=== PATIENT | male | born 1975 | race Caucasian/White ===

== ENCOUNTER 2018-08-14 00:26 | Emergency (ER) | payer OTHER, BC, SELFPAY ==
[2018-08-14 00:27] VITALS: BP 160/85; PULSE 91; RESP 16; TEMP 36.3; O2SAT 96; BMI 35.2
--- NOTE | 2018-08-14 00:34 | ED.RN ---
CALLED MONO FROM [facility] TO COME TEST THIS PT
--- NOTE | 2018-08-14 00:50 | RAD_ITS ---
HISTORY: DROPPED APPROX 100+LBS ON TOP OF RT FOOT AT WORKC/O PAIN ACROSS METATARSALS OF RT FOOT COMPARISON: None FINDINGS: # of images incl. paperwork: 3 XR Foot Min 3 Views: Right foot. SOFT TISSUES: Mild soft tissue swelling dorsal to the metatarsal shafts. No radiopaque foreign body. BONES: No acute fracture or subluxation. No sclerotic or destructive changes observed. Bidirectional calcaneal spurs. JOINTS: Mild degenerative changes. RAD/Foot min 3 Views IMPRESSION: Mild soft tissue swelling dorsal to the metatarsal shafts. No acute osseous abnormality. at 0124 Reported and signed by: Rafael Jnesen MD Electronically Signed: Rafael Jensen, at 1:23 EST Tel , Service support ,
--- NOTE | 2018-08-14 02:16 | ED.VISSUMM ---
- ER Visit Summary Date of Service: 08/14/18 Chief Complaint: Right foot injury History of Present Illness: The patient is a 43 M who presents with a right foot injury. While at work he had a roll of fiberglass paper fall onto his right foot from about 2-3 feet high. He estimates the weight at 100-150 pounds. He complains of moderate throbbing pain. No other injuries. He is able to partially weight-bear. Physical Examination: Afebrile vitals stable Heart regular rate and rhythm Lungs clear Active full range of motion of the right ankle and foot he does have midfoot tenderness without bony deformity, easily palpable dorsalis pedis pulse with brisk capillary refill normal sensation no ankle tenderness Test Results: Right foot x-ray shows mild soft tissue swelling no fracture Emergency Department Course and Treatment: Patient was given naproxen here for pain. He was advised on supportive care including rest ice and elevation. He will follow up with Worker's Comp. and was discharged home. Treatment Plan: [] Disposition: Discharge Impression: Right foot contusion This note was generated with [employer] dictation software. It may contain incorrect words, spelling, and punctuation that were not noted in review of the chart prior to signing ED Disposition - Plan for ED Patient: Referrals: Gatito Roa DO [Primary Care Provider] -
--- NOTE | 2018-08-14 02:17 | ED.DEP ---
ED Disposition - Plan for ED Patient: Instructions: ED Contusion Foot Referrals: Gatito Roa DO [Primary Care Provider] - [facility] [GROUP OF PHYSICIANS] -
--- NOTE | 2018-08-14 02:18 | DCINST.ED_ITS ---
ED Disposition - Plan for ED Patient: Instructions: ED Contusion Foot Referrals: Gatito Roa DO [Primary Care Provider] - [facility] [GROUP OF PHYSICIANS] -
[2018-08-14] MEDS: Naproxen 500 MG Tablet PO (02:34)
== END 2018-08-14 02:47 | disposition home or self-care (01) ==
PROVIDERS: Emergency Provider Emergency Medicine; Family Provider Family Medicine; PCP Family Medicine
DX: S90.31XA Contusion of right foot, initial encounter (principal); W22.8XXA Striking against or struck by other objects, initial encounter; Y93.9 Activity, unspecified; Y92.9 Unspecified place or not applicable; G40.909 Epilepsy, unspecified, not intractable, without status epilepticus; Z79.899 Other long term (current) drug therapy
CPT/HCPCS: 73630; 99283

== ENCOUNTER → 2020-06-29 11:03 | Outpatient (CLI) | payer BC, SELFPAY ==
--- NOTE | 2020-06-29 11:14 | MRI_ITS ---
STUDY: MRI BRAIN WITH AND WITHOUT CONTRAST REASON FOR EXAM: Male, 44 years old. seizures -- last seizure 4 years ago, on meds, new neurologists TECHNIQUE: Standardized multiplanar fat and water weighted pulse sequences were obtained. dotarem 20ml iv was administered for the contrast portion of the examination. COMPARISON: 05/04/2015 FINDINGS: Normal size of the ventricles and extra-axial spaces for the patient''s age. Normal white matter tracts of the supratentorial brain. Normal bilateral basal ganglia. Normal thalami. There is no extra-axial fluid accumulation. Normal flow voids within the major intracranial circulation suggesting patency by spin echo criteria. Normal venous enhancement. There is no enhancing intra-axial or extra-axial abnormality. Unremarkable sella turcica, pituitary gland, infundibular stalk, optic chiasm and hypothalamus. Normal tectal plate and pineal gland. Normal midbrain, lamar and medulla. Normal cerebellum. Normal basal cisterns. Normal bilateral temporal bones. Normal bilateral internal auditory canals. MRI/Brain W/WO Contrast IMPRESSION: Unremarkable unenhanced and enhanced MRI of the brain. Electronically Signed: Gurvinder Burns MD at 15:15 EST Tel , Service support ,
== END ==
PROVIDERS: Referring Provider Psychiatry & Neurology Neurology; Visit Provider Psychiatry & Neurology Neurology
DX: G40.019 Localization-related (focal) (partial) idiopathic epilepsy and epileptic syndromes with seizures of localized onset, intractable, without status epilepticus (principal)
CPT/HCPCS: 70553; A9575

== ENCOUNTER → 2020-11-12 16:40 | Outpatient (CLI) | payer BC, SELFPAY ==
[2020-11-12 18:07] LABS: Hematocrit 46.1 % (40-54); Hemoglobin 14.5 g/dL (13.0-16.5); Mean Corp Hgb Conc 31.5 g/dL (32-36); Mean Corpuscular Hgb 27.2 pg (27.0-32.0); Mean Corpuscular Volume 86.5 fL (80-94); Mean Platelet Vol. 10.8 fl (6.2-12.0); Platelet Count 281 K/mm3 (150-450); RBC Distribution Width CV 13.6 % (11.6-14.6); RBC Distribution Width SD 43.2 fl (35.1-43.9); Red Blood Count 5.33 M/mm3 (4.6-6.2); White Blood Count 8.3 K/mm3 (4.4-11.0)
[2020-11-12 18:30] LABS: ALB/GLOB Ratio 0.8 RATIO (0.9-2.4); AST(SGOT) 12 U/L (15-37); Alanine Aminotransfer ALT/SGPT 46 U/L (16-61); Albumin, Serum 3.3 g/dL (3.2-5.0); Alkaline Phosphatase 103 U/L (45-117); Anion Gap 5 (5-15); BUN 13 mg/dL (7-18); BUN/Creat Ratio 14.4 RATIO (10-20); Calcium,Total 8.6 mg/dL (8.5-10.1); Chloride 107 mmol/L (98-107); Cholesterol 196 mg/dL (200); EST Glomerular Filtration Rate 98 mL/min (>60); Est Glom Filt Rate - Afr Amer 118 mL/min (>60); Glucose 99 mg/dL (74-106); High Density Lipoprotein 41 mg/dL; Protein, Total 7.3 g/dL (6.4-8.2); Sodium Level 139 mmol/L (136-145); Triglycerides 124 mg/dL; Very Low Density Lipoprotein 25 mg/dL (5-40)
[2020-11-12 19:40] LABS: Hemoglobin A1c 5.8 % (3.8-5.6)
== END ==
PROVIDERS: PCP Student in an Organized Health Care Education/Training Program; Referring Provider Student in an Organized Health Care Education/Training Program; Visit Provider Student in an Organized Health Care Education/Training Program
DX: F32.9 Major depressive disorder, single episode, unspecified (principal); Z13.6 Encounter for screening for cardiovascular disorders
CPT/HCPCS: 36415; 80053; 80061; 83036; 84443; 85027

== ENCOUNTER → 2020-11-16 10:12 | Outpatient (CLI) | payer BC, SELFPAY ==
--- NOTE | 2020-11-16 10:20 | STEWCON_ITS ---
Reason For Study: DYSPNEA ON EXERTION Stress Results Protocol: Los Protocol WITH DEFINITY Maximum Predicted HR: 177 bpm Target HR: 150 bpm % Maximum Predicted HR: 83 % DurationHeart Rate Stage (mm:ss) (bpm) BP Comment BASELINE 82 122/744 CC DEFINITY FOR ENTIRE TEST STAGE 1 3:00 113 138/62NO CHEST PAIN OR SOB STAGE 2 3:00 123 144/62BREATHING A LITTLE MORE LABORED. NO CHEST PAIN STAGE 3 3:00 147 144/62NO CHEST PAIN, LEG FATIGUE AND SOB RECOVERY 100 132/74 Stress Duration: 9:00 mm:ss Maximum Stress HR: 147 bpm Baseline Echocardiogram Findings Stress Echo Wall motion Data Resting WM Intermediate WM Stress WM ECHO/Stress Test Echo W/Contrast Interpretation Summary Exercise stress echo. 45-year-old man with a family history of coronary disease. Stress protocol: Resting EKG demonstrates normal sinus rhythm with a rate of 81 bpm normal inter vals are noted resting blood pressure is 122/74 mmHg. The patient exercised according to the r egular Los protocol for a total duration of 9 minutes. The maximum heart rate attained was 148 bpm which was 83% of maximum predicted heart rate the maximum workload was 10.1 metabolic equivalent s. Patient completed stage III of the Los protocol. At rest there were no ST or T wave changes not ed to suggest ischemia and at peak exercise upsloping ST changes were noted with did not meet the criteria for ischemia the test was terminated due to leg fatigue. The peak blood pressure wa s 144/62 mmHg which was a normal blood pressure response to exercise. Stress echocardiogram. Resting and stress echocardiographic images were obtained with Definity enhance ment. The resting ejection fraction was 55% with a peak ejection fraction of 65% with no wall mot ion abnormalities present. The above is suggestive of a normal stress echocardiogram at high work load. Conclusion: Normal exercise stress echo with no evidence of ischemia at a high workload. Normal resting and stress echocardiographic images. Ordering Physician: Bruno Da Silva Referring Physician: Bruno Da Silva Performed By: Celine Cervantes, GABINO, RVT
== END ==
PROVIDERS: PCP Student in an Organized Health Care Education/Training Program; Referring Provider Student in an Organized Health Care Education/Training Program; Visit Provider Student in an Organized Health Care Education/Training Program
DX: R06.00 Dyspnea, unspecified (principal); E66.9 Obesity, unspecified; Z68.34 Body mass index [BMI] 34.0-34.9, adult
CPT/HCPCS: 93017; 93350; Q9957; A4216; C8928

== ENCOUNTER 2021-09-17 18:51 | Emergency (ER) | payer BC, SELFPAY ==
[2021-09-17 18:52] VITALS: BP 166/96; PULSE 91; PULSE 94; RESP 18; TEMP 36.3; O2SAT 93; O2SAT 94; BMI 34.9
--- NOTE | 2021-09-17 21:01 | ED.RN ---
PT. WAS ABLE TO STAND AND MOVE TO BED WITH NO DIFFICULTIES.
--- NOTE | 2021-09-17 21:06 | EKG12_ITS ---
Test Reason : GEN ILLNESS Blood Pressure : / mmHG Vent. Rate : 086 BPM Atrial Rate : 086 BPM P-R Int : 146 ms QRS Dur : 084 ms QT Int : 374 ms P-R-T Axes : 050 078 023 degrees QTc Int : 447 ms Normal sinus rhythm Normal ECG Confirmed by JAD CRUZ, SKYLER ([id number]), school photograph editor NATALIA SHETH ([id number]) on 09/20/2021 10:59:01 AM Referred By: THEODORA Confirmed By:SKYLER STREET MD
--- NOTE | 2021-09-17 21:09 | EX.ED.DYSGE1 ---
HPI <JT Coats - Last Filed: 09/17/21 22:13> History of Present Illness Chief Complaint: General Illness Narrative Narrative: 46-year-old male with PMH of seizures, depression presents with right-sided chest pain. He states that 6:00 he was sitting when he developed sudden onset sharp pain along his right shoulder blade extending down the right side of his lateral chest to the level of his hips. Pain is worse with movement. He states when he was sitting completely still in the wheelchair in triage he did not have pain, but with movement it is 10/10. No chest pain- it is all on the side. He denies shortness of breath or cough. Denies abdominal or flank pain. He reports normal daily bowel movements and no urinary symptoms. No fever or chills. No nausea or vomiting. PFSH <JT Coats - Last Filed: 09/17/21 22:13> PFSH Home Medications lamotrigine 200 mg PO BID 08/14/18 [History Last Taken Unknown] levetiracetam 1,500 mg PO BID 08/14/18 [History Last Taken Unknown] naproxen [Naprosyn] 500 mg PO BID PRN #20 tab 09/17/21 [Rx Last Taken Unknown] venlafaxine [Effexor XR] 150 mg PO DAILY 09/17/21 [History Last Taken Unknown] Allergy/AdvReac Type Severity Reaction Status Date / Time No Known Allergies Allergy Verified 09/17/21 21:32 Social History Smoking Status: Never smoker ROS <JT Coats - Last Filed: 09/17/21 22:13> ROS ED ROS Narrative Constitutional: Negative for fever, chills, malaise. Eyes: Negative for visual change. ENT: Negative for sore throat, ear pain, rhinorrhea. CVS: Negative for palpitations, chest pain, syncope. Respiratory: Negative for shortness of breath, cough, orthopnea. GI: Negative for abdominal pain, nausea, vomiting, diarrhea, constipation, melena, hematochezia. : Negative for dysuria, hematuria or frequency. Neuro: Negative for headache, motor/sensory dysfunction. Skin: Negative for rash, abscess, or wound. Musc: Negative for joint pain, swelling, trauma. Heme: Negative for easy bruising, bleeding, lymphadenopathy. EXAM <JT Coats - Last Filed: 09/17/21 22:13> Physical Exam Narrative Exam Narrative: CONST: Patient sitting in no acute distress. EYES: Normal inspection. ENT: Normal inspection, moist mucous membranes. NECK: Normal inspection. RESP: No respiratory distress, CTAB. Chest wall nontender. CVS: Regular rate and rhythm, no murmur, no gallop. ABD: Soft and nontender, no guarding or rebound, nondistended, no hepatosplenomegaly. Back: Normal inspection, no CVA tenderness. No midline spinal tenderness, no step-off or crepitus. SKIN: Color normal, no rash, warm, dry, intact. EXTREMITIES: Normal appearance, no pedal edema. 5/5 upper and lower extremity strength, normal sensation to light touch, 2+ radial and posterior tibial pulses. NEURO: Oriented x4. PSYCH: Normal affect. Const Vital Signs: 09/17/21 18:52 09/17/21 20:59 09/17/21 22:04 Temperature 97.4 F L Temperature Source Temporal Pulse Rate 91 83 Respiratory Rate 18 21 H Respiratory Effort Normal Non-Labored Respiratory Pattern Normal Blood Pressure 166/96 H 139/84 H Blood Pressure Mean 119 102 Pulse Ox 94 94 Oxygen Delivery Method Room Air Room Air <Dr. Cruz Kahn DO - Last Filed: 09/17/21 23:15> Physical Exam Const Vital Signs: 09/17/21 18:52 09/17/21 20:59 09/17/21 22:04 Temperature 97.4 F L Temperature Source Temporal Pulse Rate 91 83 Respiratory Rate 18 21 H Respiratory Effort Normal Non-Labored Respiratory Pattern Normal Blood Pressure 166/96 H 139/84 H Blood Pressure Mean 119 102 Pulse Ox 94 94 Oxygen Delivery Method Room Air Room Air [facility] <JT Coats - Last Filed: 09/17/21 22:13> [facility] Narrative Medical decision making narrative: Patient presents with pain along the right lateral side of his chest that started at rest. He has no chest or back pain. No abdominal pain. No pain in his jaw or extremities. There was no trauma. He appears well nontoxic vital signs are within normal limits. The nurse states he was able to get up from the wheelchair and get into the bed comfortably. Here he is moist mucous membranes. Normal oropharynx. Heart regular rate and rhythm. Lungs clear to auscultation. Abdomen soft nontender nondistended no peritoneal signs. He has no reproducible pain of the chest wall, affected side, back, or flank. He has full range of motion of upper and lower extremities and is neurovascularly intact. The pain does not really fit with ACS/PE and he is PERC negative. Basic labs and troponin were obtained and are unremarkable. EKG is nonischemic. Chest x-ray is pending. Patient was treated symptomatically with Toradol and will be evaluated by ED attending who will determine final disposition. Lab Data Labs: Laboratory Results - last 24 hr 09/17/21 09/17/21 09/17/21 21:20 21:20 22:10 WBC 12.4 H RBC 5.43 Hgb 15.2 Hct 46.9 MCV 86.4 MCH 28.0 MCHC 32.4 RDW Std Deviation 43.8 RDW Coeff of Alhaji 13.9 Plt Count 310 MPV 10.3 Immature Gran % (Auto) 0.800 Neut % (Auto) 70.7 H Lymph % (Auto) 17.2 L Spalding % (Auto) 9.0 Eos % (Auto) 1.9 Baso % (Auto) 0.4 Absolute Neuts (auto) 8.7 H Absolute Lymphs (auto) 2.12 Nucleated RBC % 0 Sodium 139 Potassium 4.2 Chloride 108 H Carbon Dioxide 27.0 Anion Gap 4 L BUN 26 H Creatinine 1.05 Estim Creat Clear Calc 98.54 Est GFR (MDRD) Af Amer 99 Est GFR (MDRD) Non-Af 82 BUN/Creatinine Ratio 24.8 H Glucose 115 H Calcium 8.8 Troponin I High Sens < 3 L Urine Color Yellow Urine Clarity Clear Urine pH 5.0 Ur Specific [place] 1.025 Urine Protein 30 H Urine Glucose (UA) Normal Urine Ketones 5 H Urine Occult Blood 150 H Urine Nitrite Negative Urine Bilirubin Negative Urine Urobilinogen Normal Ur Leukocyte Esterase Negative Urine RBC 0 SEEN Urine WBC 0-5 SEEN Ur Squamous Epith Cells 0 SEEN Urine Bacteria 0 SEEN Hyaline Casts 0-5 SEEN Urine Mucus 4+ Radiography Diagnostic Testing: Clinical Impression(s) from Imaging Studies Chest X-Ray 09/17/21 22:09 IMPRESSION: 1. No radiographic evidence of acute cardiopulmonary disease. Electronically Signed: Bruno Payne DO at 22:58 EST , EKG Initial EKG: Attestation: I personally reviewed and interpreted this EKG as follows: Interpretation: Sinus Rhythm and No Acute Injury Pattern Comments: Normal sinus rhythm, normal intervals, no acute ischemic changes <Dr. Cruz Kahn, DO - Last Filed: 09/17/21 23:15> [facility] MDM Narrative Medical decision making narrative: 46-year-old male with no history of cardiac issues presenting with right-sided shoulder/rib pain. He initially reported to the PA that extended all the way to his right hip. He reports to me that he was sitting still when this occurred. There is no exertional component to it. He does not have shortness of breath, cough abdominal pain. He denies any urinary symptoms. He denies constipation or diarrhea. He is not had any injury that he knows of. When I independently examined him after the physician store administrative assistant the patient does not make any eye contact with me while I am questioning him and examining him. He does not have any reproducible pain that I can tell. He is not tender his shoulder, ribs, flank. His abdominal exam is normal. He does report to me that Toradol did help. Blood work today shows a slight leukocytosis at 12.4. Hemoglobin/hematocrit are stable. Renal function electrolytes are normal. Urinalysis does show some occult blood but he has no flank pain or CVA tenderness. High-sensitivity troponin is negative. EKG is sinus rhythm without sign of ischemic change or dysrhythmia on my interpretation. Chest x-ray on my interpretation is no acute cardiopulmonary process and the radiologist does agree. This does not sound like ACS I do not believe he needs a repeat troponin. After returning to reevaluate the patient prior to discharge and had a discussion that his work-up was otherwise normal. He is still not making any eye contact with me. He states I guess I have paid for no reason. I counseled him that we did not find any emergent cause of his pain but if he has any new or worsening symptoms of concern to return to the emergency room for repeat evaluation. He does acknowledge understanding of this. He will be discharged home in stable condition. Impression: 1. Right shoulder pain 2. Chest pain noncardiac Lab Data Attestation: I reviewed the patient's lab results. Labs: Laboratory Results - last 24 hr 09/17/21 09/17/21 09/17/21 21:20 21:20 22:10 WBC 12.4 H RBC 5.43 Hgb 15.2 Hct 46.9 MCV 86.4 MCH 28.0 MCHC 32.4 RDW Std Deviation 43.8 RDW Coeff of Alhaji 13.9 Plt Count 310 MPV 10.3 Immature Gran % (Auto) 0.800 Neut % (Auto) 70.7 H Lymph % (Auto) 17.2 L Spalding % (Auto) 9.0 Eos % (Auto) 1.9 Baso % (Auto) 0.4 Absolute Neuts (auto) 8.7 H Absolute Lymphs (auto) 2.12 Nucleated RBC % 0 Sodium 139 Potassium 4.2 Chloride 108 H Carbon Dioxide 27.0 Anion Gap 4 L BUN 26 H Creatinine 1.05 Estim Creat Clear Calc 98.54 Est GFR (MDRD) Af Amer 99 Est GFR (MDRD) Non-Af 82 BUN/Creatinine Ratio 24.8 H Glucose 115 H Calcium 8.8 Troponin I High Sens < 3 L Urine Color Yellow Urine Clarity Clear Urine pH 5.0 Ur Specific [place] 1.025 Urine Protein 30 H Urine Glucose (UA) Normal Urine Ketones 5 H Urine Occult Blood 150 H Urine Nitrite Negative Urine Bilirubin Negative Urine Urobilinogen Normal Ur Leukocyte Esterase Negative Urine RBC 0 SEEN Urine WBC 0-5 SEEN Ur Squamous Epith Cells 0 SEEN Urine Bacteria 0 SEEN Hyaline Casts 0-5 SEEN Urine Mucus 4+ Radiography Diagnostic Testing: Clinical Impression(s) from Imaging Studies Chest X-Ray 09/17/21 22:09 IMPRESSION: 1. No radiographic evidence of acute cardiopulmonary disease. Electronically Signed: Bruno Payne DO at 22:58 EST , Discharge Plan Triage Chief Complaint: General Illness ED Provider: Cruz Kahn Dx/Rx/DC Orders Instructions: ED Chest Pain, Uncertain Cause Prescriptions: New naproxen [Naprosyn] 500 mg tablet 500 mg PO BID PRN (Reason: pain) Qty: 20 RF: 0 No Action levetiracetam 750 MG tablet 1,500 mg PO BID RF: 0 lamotrigine 100 tablet 200 mg PO BID RF: 0 venlafaxine [Effexor XR] 150 mg capsule,extended release 24hr 150 mg PO DAILY RF: 0 Primary Care Provider: Bruno Da Silva Referrals: Bruno Da Silva DO [Primary Care Provider] - Disposition Disposition: Home, Self Care Discharge Date/Time: 09/17/21 23:09
[2021-09-17] MEDS: Ketorolac 15 MG/ML Vial IV (21:26)
[2021-09-17 21:28] LABS: Absolute Lymphocyte Count 2.12 X10^3/uL (0.83-4.51); Absolute Neutrophil Count 8.7 X10^3/uL (2.0-7.7); Basophil# 0.05 X10^3/uL; Basophil% 0.4 % (0-1); Eosinophil# 0.23 X10^3/uL; Eosinophils% 1.9 % (0-5); Hematocrit 46.9 % (40-54); Hemoglobin 15.2 g/dL (13.0-16.5); Lymphocyte # 2.12 X10^3/ul (0.83-4.51); Lymphocyte % 17.2 % (19-41); Mean Corp Hgb Conc 32.4 g/dL (32-36); Mean Corpuscular Volume 86.4 fL (80-94); Mean Platelet Vol. 10.3 fl (6.2-12.0); Monocyte# 1.11 X10^3/uL; NRBC Flagged by Analyzer 0 % (0-5); Neutrophil # 8.74 X10^3/uL (2.7-7.7); Neutrophil % 70.7 % (47-70); Platelet Count 310 K/mm3 (150-450); RBC Distribution Width CV 13.9 % (11.6-14.6); RBC Distribution Width SD 43.8 fl (35.1-43.9); Red Blood Count 5.43 M/mm3 (4.6-6.2); White Blood Count 12.4 K/mm3 (4.4-11.0)
[2021-09-17 21:46] LABS: Anion Gap 4 (5-15); BUN 26 mg/dL (7-18); BUN/Creat Ratio 24.8 RATIO (10-20); Calcium,Total 8.8 mg/dL (8.5-10.1); Chloride 108 mmol/L (98-107); Creatinine, Serum 1.05 mg/dL (0.70-1.30); EST Glomerular Filtration Rate 82 mL/min (>60); Est Glom Filt Rate - Afr Amer 99 mL/min (>60); Estimated Creatinine Clearance 98.54 ml/min; Glucose 115 mg/dL (74-106); Potassium 4.2 mmol/L (3.5-5.1); Sodium Level 139 mmol/L (136-145); Troponin-I HS < 3 pg/mL (3.0-78.0)
[2021-09-17 22:04] VITALS: BP 139/84; PULSE 83; RESP 21; O2SAT 94
--- NOTE | 2021-09-17 22:09 | RAD_ITS ---
INDICATION: chest pain EXAMINATION/TECHNIQUE: X-RAY - XR Chest 2 Views COMPARISON: None. FINDINGS: LINES/DEVICES: None. LUNGS: Mild asymmetric elevation right hemidiaphragm. Otherwise normal lung volumes. No airspace opacity or abnormal interstitial pattern. No nodule or mass. No pleural effusion or pneumothorax. MEDIASTINUM AND CARDIOVASCULAR STRUCTURES: Normal size and contour of the cardiomediastinal silhouette. No evidence of pulmonary vascular congestion. BONES AND SOFT TISSUES: Bridging anterior osteophytes thoracic spine. No fracture or focal osseous lesion. RAD/Chest PA and Lateral IMPRESSION: 1. No radiographic evidence of acute cardiopulmonary disease. Electronically Signed: Bruno Payne DO at 22:58 EST ,
[2021-09-17 22:28] LABS: Bacteria 0 SEEN /hpf (None Seen); Red Blood Cells-Urine 0 SEEN /hpf (0-5); Squamous Epithelial Cells - UA 0 SEEN /hpf (0-5)
[2021-09-17 22:32] LABS: Color, Urine Yellow (Yellow); Glucose, Dipstick Normal (Normal); Ketone-Dipstick 5 mg/dl (Negative); Leukocyte Esterase-Dipstick Negative /ul (Negative); Nitrite-Dipstick Negative (Negative); Occult Blood-Urine 150 /ul (Negative); Protein-Dipstick 30 mg/dl (Negative); Specific Gravity, Urine 1.025 (1.002-1.030); Urine Bilirubin Dipstick Negative (Negative); Urine Clarity Clear (Clear); Urine Urobilinogen Normal (Normal)
[2021-09-17 22:48] LABS: Hyaline Cast 0-5 SEEN /lpf (0-5); Mucous, Urine 4+ /hpf (<or=2+); White Blood Cells 0-5 SEEN /hpf (0-5)
== END 2021-09-17 23:09 | disposition home or self-care (01) ==
PROVIDERS: Physician Assistant; Emergency Provider Student in an Organized Health Care Education/Training Program; PCP Student in an Organized Health Care Education/Training Program; Visit Provider Student in an Organized Health Care Education/Training Program
DX: R07.89 Other chest pain (principal); G40.909 Epilepsy, unspecified, not intractable, without status epilepticus; M25.511 Pain in right shoulder; F32.A Depression, unspecified; Z79.899 Other long term (current) drug therapy
CPT/HCPCS: 71046; 80048; 81001; 84484; 85025; 93005; 96374; 99283; A4216

== ENCOUNTER → 2022-04-29 | Outpatient (CLI) | payer BC, SELFPAY ==
[2022-04-29 07:43] LABS: Hematocrit 44.1 % (40-54); Hemoglobin 13.9 g/dL (13.0-16.5); Mean Corp Hgb Conc 31.5 g/dL (32-36); Mean Corpuscular Hgb 26.3 pg (27.0-32.0); Mean Corpuscular Volume 83.5 fL (80-94); Mean Platelet Vol. 10.1 fl (6.2-12.0); Platelet Count 289 K/mm3 (150-450); RBC Distribution Width CV 13.9 % (11.6-14.6); RBC Distribution Width SD 42.4 fl (35.1-43.9); Red Blood Count 5.28 M/mm3 (4.6-6.2); White Blood Count 8.9 K/mm3 (4.4-11.0)
[2022-04-29 08:05] LABS: Hemoglobin A1c 6.1 % (3.8-5.6)
[2022-04-29 08:12] LABS: ALB/GLOB Ratio 0.9 RATIO (0.9-2.4); AST(SGOT) 15 U/L (15-37); Alanine Aminotransfer ALT/SGPT 37 U/L (16-61); Albumin, Serum 3.4 g/dL (3.2-5.0); Alkaline Phosphatase 90 U/L (45-117); Anion Gap 4 (5-15); BUN 18 mg/dL (7-18); BUN/Creat Ratio 19.5 RATIO (10-20); Calcium,Total 8.6 mg/dL (8.5-10.1); Chloride 107 mmol/L (98-107); Cholesterol 174 mg/dL (200); Creatinine, Serum 0.92 mg/dL (0.70-1.30); EST Glomerular Filtration Rate 94 mL/min (>60); Est Glom Filt Rate - Afr Amer 114 mL/min (>60); Globulin 3.6 g/dL (2.2-4.2); Glucose 111 mg/dL (74-106); High Density Lipoprotein 42 mg/dL; Sodium Level 140 mmol/L (136-145); Triglycerides 72 mg/dL; Very Low Density Lipoprotein 14 mg/dL (5-40)
[2022-04-29 08:18] LABS: Rubella IgG Reactive (Nonreactive)
[2022-05-03 17:49] LABS: Mumps Antibody, IgM < 0.80 AU (0.00-0.79)
== END | disposition home or self-care (01) ==
LOC: LAB 07:25
PROVIDERS: PCP Student in an Organized Health Care Education/Training Program; Referring Provider Student in an Organized Health Care Education/Training Program; Visit Provider Student in an Organized Health Care Education/Training Program
DX: Z01.84 Encounter for antibody response examination (principal); R73.03 Prediabetes; Z13.6 Encounter for screening for cardiovascular disorders
CPT/HCPCS: 36415; 80053; 80061; 83036; 85027; 86735; 86762; 86765

== ENCOUNTER → 2022-09-23 | Outpatient (CLI) | payer BC, SELFPAY ==
[2022-09-23 08:09] LABS: Hematocrit 43.7 % (40-54); Hemoglobin 13.8 g/dL (13.0-16.5); Mean Corp Hgb Conc 31.6 g/dL (32-36); Mean Corpuscular Hgb 26.6 pg (27.0-32.0); Mean Corpuscular Volume 84.4 fL (80-94); Mean Platelet Vol. 10.3 fl (6.2-12.0); Platelet Count 261 K/mm3 (150-450); RBC Distribution Width CV 14.6 % (11.6-14.6); RBC Distribution Width SD 44.6 fl (35.1-43.9); Red Blood Count 5.18 M/mm3 (4.6-6.2); White Blood Count 8.9 K/mm3 (4.4-11.0)
[2022-09-23 08:39] LABS: AST(SGOT) 19 U/L (15-37); Alanine Aminotransfer ALT/SGPT 43 U/L (16-61); Albumin, Serum 3.6 g/dL (3.2-5.0); Alkaline Phosphatase 89 U/L (45-117); Anion Gap 6 (5-15); BUN 23 mg/dL (7-18); BUN/Creat Ratio 25.4 RATIO (10-20); Calcium,Total 8.9 mg/dL (8.5-10.1); Chloride 108 mmol/L (98-107); Cholesterol 193 mg/dL (200); EST Glomerular Filtration Rate 96 mL/min (>60); Est Glom Filt Rate - Afr Amer 117 mL/min (>60); Globulin 3.7 g/dL (2.2-4.2); Glucose 115 mg/dL (74-106); High Density Lipoprotein 44 mg/dL; Potassium 4.1 mmol/L (3.5-5.1); Protein, Total 7.3 g/dL (6.4-8.2); Sodium Level 141 mmol/L (136-145); Thyroid Stim Hormone (TSH) 2.71 uIU/mL (0.358-3.74); Triglycerides 80 mg/dL; Very Low Density Lipoprotein 16 mg/dL (5-40)
[2022-09-23 08:42] LABS: Hemoglobin A1c 5.7 % (3.8-5.6)
[2022-09-23 09:02] LABS: Hepatitis C Antibody Non-Reactive (Nonreactive)
== END | disposition home or self-care (01) ==
PROVIDERS: PCP Student in an Organized Health Care Education/Training Program; Visit Provider Student in an Organized Health Care Education/Training Program
DX: Z11.59 Encounter for screening for other viral diseases (principal); R73.03 Prediabetes
CPT/HCPCS: 36415; 80053; 80061; 83036; 84443; 85027; 86803

== ENCOUNTER → 2023-08-29 | Outpatient (CLI) | payer BC, SELFPAY ==
--- OUTSIDE RECORDS SUMMARY | 2023-08-29 07:33 | XMS RPT_ITS | CCD ---
Author Name Unknown Address [address] [place] [address] Organization [facility] Care Team Providers Care Phlebotomy Director Name Role Phone RICKYJUAN LAZO Primary Care Unavailable MAURIZIO MORRIS Attending Unavailable Problems Problem Classification Problem Date Documented Da te Episodic/Chronic Open wounds of head; neck; and trunk (1 source) Laceration without foreign body of other part of head, initial encounter; Translations: [Laceration of forehead, initial encounter] Onset: 07-24-2022 Episodic Other injuries and conditions due to external causes (1 source) Unspecified injury of head, initial encounter; Translations: [Closed head injury, initial encounter] Onset: 07-24-2022 Episodic Syncope (1 source) Syncope and collapse; Translations: [Syncope and collapse] Onset: 07-24-2022 Episodic Results Test Name Value Interpretation Reference Range Facil ity Encounters Encounter Date Encounter Type Care Provider Facility Start: 07-24-2022 End: 07-24-2022 Emergency department patient visit JUAN CASTRO Facility:[id number] Payers Date Payer Category Payer Unknown [id number] Summary Purpose Family History No Family History Records FoundNo Family History Records Found Advance Directives No Advanced Directives Records FoundNo Advanced Directives Records Found Additional Source Comments (unrecognized sect ion and content) No Status Records FoundNo Status Records Found INFORMATION SOURCE (unrecogn ized section and content) DATE CREATED AUTHOR AUTHOR'S ASHLEY MCCAIN 07/25/2022 [facility] FOR RECORDS PERTAINING TO PATIENTS WHO ARE OR HAVE BEEN ENROLLED IN A CHEMICAL DEPENDENCY/SUBSTANCEABUSE PROGRAM, SOME INFORMATION MAY BE OMITTED. This clinical summary was aggregated from multiple sources. Caution should be exercised in using it in the provision of clinical care. This summary normalizes information from multiple sources, and as a consequence, information in this document may materially change the coding, format and clinical context of patient data. In addition, data may be omitted in some cases. CLINICAL DECISIONS SHOULD BE BASED ON THE PRIMARY CLINICAL RECORDS. [facility] [email or web address] [facility]. provides no warranty or guarantee of the accuracy or completeness of information in this document.
[2023-08-29 08:12] LABS: Hematocrit 45.8 % (40-54); Hemoglobin 14.9 g/dL (13.0-16.5); Mean Corp Hgb Conc 32.5 g/dL (32-36); Mean Corpuscular Hgb 27.5 pg (27.0-32.0); Mean Corpuscular Volume 84.7 fL (80-94); Mean Platelet Vol. 10.3 fl (6.2-12.0); Platelet Count 295 K/mm3 (150-450); RBC Distribution Width CV 14.6 % (11.6-14.6); Red Blood Count 5.41 M/mm3 (4.6-6.2)
[2023-08-29 08:54] LABS: ALB/GLOB Ratio 0.9 RATIO (0.9-2.4); AST(SGOT) 21 U/L (15-37); Alanine Aminotransfer ALT/SGPT 62 U/L (16-61); Albumin, Serum 3.5 g/dL (3.2-5.0); Alkaline Phosphatase 80 U/L (45-117); Anion Gap 5 (5-15); BUN 22 mg/dL (7-18); BUN/Creat Ratio 20.6 RATIO (10-20); Calcium,Total 8.5 mg/dL (8.5-10.1); Chloride 107 mmol/L (98-107); Cholesterol 210 mg/dL (200); Creatinine, Serum 1.07 mg/dL (0.70-1.30); EST Glomerular Filtration Rate 79 mL/min (>60); Est Glom Filt Rate - Afr Amer 96 mL/min (>60); Globulin 3.9 g/dL (2.2-4.2); Glucose 102 mg/dL (74-106); High Density Lipoprotein 39 mg/dL; Protein, Total 7.4 g/dL (6.4-8.2); Sodium Level 138 mmol/L (136-145); Triglycerides 85 mg/dL; Very Low Density Lipoprotein 17 mg/dL (5-40)
== END | disposition home or self-care (01) ==
LOC: LAB.FUTURE 07:23 → LAB 07:26
PROVIDERS: PCP Student in an Organized Health Care Education/Training Program; Referring Provider Psychiatry & Neurology Neurology; Visit Provider Psychiatry & Neurology Neurology
DX: G40.009 Localization-related (focal) (partial) idiopathic epilepsy and epileptic syndromes with seizures of localized onset, not intractable, without status epilepticus (principal); R73.03 Prediabetes
CPT/HCPCS: 36415; 80053; 80061; 85027

== ENCOUNTER → 2024-02-27 | Outpatient (CLI) | payer BC, SELFPAY ==
[2024-02-27 08:13] LABS: Hematocrit 45.3 % (40-54); Hemoglobin 14.3 g/dL (13.0-16.5); Mean Corp Hgb Conc 31.6 g/dL (32-36); Mean Corpuscular Hgb 26.9 pg (27.0-32.0); Mean Corpuscular Volume 85.3 fL (80-94); Mean Platelet Vol. 10.4 fl (6.2-12.0); Platelet Count 287 K/mm3 (150-450); RBC Distribution Width CV 13.8 % (11.6-14.6); Red Blood Count 5.31 M/mm3 (4.6-6.2); White Blood Count 8.3 K/mm3 (4.4-11.0)
[2024-02-27 08:54] LABS: ALB/GLOB Ratio 0.9 RATIO (0.9-2.4); AST(SGOT) 23 U/L (15-37); Alanine Aminotransfer ALT/SGPT 50 U/L (16-61); Albumin, Serum 3.4 g/dL (3.2-5.0); Alkaline Phosphatase 88 U/L (45-117); Anion Gap 5 (5-15); BUN 26 mg/dL (7-18); BUN/Creat Ratio 26.1 RATIO (10-20); Calcium,Total 8.8 mg/dL (8.5-10.1); Chloride 107 mmol/L (98-107); Cholesterol 198 mg/dL (200); EST Glomerular Filtration Rate 86 mL/min (>60); Est Glom Filt Rate - Afr Amer 104 mL/min (>60); Globulin 3.8 g/dL (2.2-4.2); Glucose 102 mg/dL (74-106); High Density Lipoprotein 41 mg/dL; PSA,Total - Annual Screen 1.23 ng/mL (0.00-4.00); Potassium 4.3 mmol/L (3.5-5.1); Protein, Total 7.2 g/dL (6.4-8.2); Sodium Level 139 mmol/L (136-145); Triglycerides 89 mg/dL; Very Low Density Lipoprotein 18 mg/dL (5-40)
[2024-02-27 14:09] LABS: Hemoglobin A1c 5.9 % (3.8-5.6)
== END | disposition home or self-care (01) ==
LOC: LAB 07:28
PROVIDERS: PCP Student in an Organized Health Care Education/Training Program; Referring Provider Student in an Organized Health Care Education/Training Program; Visit Provider Student in an Organized Health Care Education/Training Program
DX: Z13.6 Encounter for screening for cardiovascular disorders (principal); Z12.5 Encounter for screening for malignant neoplasm of prostate
CPT/HCPCS: 36415; 80053; 80061; 83036; 84153; 85027; G0103

== ENCOUNTER 2024-05-22 11:41 | Emergency (ER) | payer BC, SELFPAY ==
[2024-05-22 11:41] VITALS: BP 171/106; PULSE 80; RESP 16; TEMP 36.6; O2SAT 97; BMI 35.1
--- NOTE | 2024-05-22 12:09 | EX.ED.UPPERE ---
HPI History of Present Illness Chief Complaint: Upper Extremity Injury Informant: patient Narrative Narrative: Sent from urgent care was unable to remove his ring from left ring finger. Last took off the ring a month ago over last 3 weeks increasing swelling. He states it is cutting to his skin. No fever or drainage. PFSH PFSH Home Medications ?Medication ?Instructions ?Recorded ?Last Taken ?Type lamotrigine 100 mg tablet 200 mg PO BID 08/14/18 Unknown History levetiracetam 750 mg tablet 1,500 mg PO BID 08/14/18 Unknown History naproxen 500 mg tablet (Naprosyn) 500 mg PO BID PRN pain #20 tabs 09/17/21 Unknown Rx venlafaxine 150 mg 150 mg PO DAILY 09/17/21 Unknown History capsule,extended release 24 hr (Effexor XR) Allergy/AdvReac Type Severity Reaction Status Date / Time No Known Allergies Allergy Verified 05/22/24 11:41 Social History Smoking Status: Never smoker ROS ROS ED Constitutional Constitutional ED: Denies chills or fever(s) Cardiovascular Cardiovascular: Denies chest pain Respiratory/Chest Respiratory/Chest: Denies cough Gastrointestinal Gastrointestinal: Denies abdominal pain Integumentary Reports Abrasions and other Details: Ring stuck Neurologic Neurologic: Denies paresthesias EXAM Physical Exam Const Vital Signs: 05/22/24 11:41 Temperature 98 F Temperature Source Temporal Pulse Rate 80 Respiratory Rate 16 Blood Pressure 171/106 H Blood Pressure Mean 127 Pulse Ox 97 Oxygen Delivery Method Room Air Positive well nourished and well developed General Appearance ED: well developed and NAD HEENT Reports moist mucous membranes normocephalic and atraumatic Chest Wall Chest: Negative for tenderness Resp normal respiratory effort and normal air movement Effort and Inspection: symmetric chest movement; Negative for respiratory distress Cardio regular rate, regular rhythm and no murmurs Peripheral Pulses: pulses 2+ throughout GI normal to inspection, nondistended, normoactive bowel sounds and non-tender Palpation: Negative for guarding or rebound tenderness present Back/Spine no CVA tenderness and no thoracic nor lumbar tenderness Extremity normal to inspection Extremity Narrative: Left hand: Swelling the digit no redness. Ring at the proximal phalanx is abrasions around the wound site. No drainage. General Extremety ED: Yes edema; Negative for tenderness General Extremity: edema Neuro oriented x3 and no sensory deficits noted Sensorium / Orientation: awake and alert Skin Skin Narrative: See above MDM MDM MDM Narrative Medical decision making narrative: Interventions / MDM: Differential diagnosis: Ring stuck, finger abrasion Diagnosis considered but do not suspect: N/A My EKG interpretation: N/A Imaging independently reviewed and interpreted by myself: N/A External documents reviewed: N/A Test considered but not ordered:N/A ED course: Patient was stuck ring. Nursing remove ring with a ring lap cutter truer operator the department. Reevaluation slight abrasion to skin no drainage no bleeding. Wound care discussed with outpatient follow-up. Re-evaluation: stable Disposition discussed with patient/family/significant other: Patient Case discussed with consulting clinician: N/A This note was generated with [employer] dictation software. It may contain incorrect words, spelling, and punctuation that were not noted in checking the note before signing. Discharge Plan Triage Chief Complaint: Upper Extremity Injury ED Provider: Cade Cisenros Dx/Rx/DC Orders Clinical Impression: Encounter for medical assessment, Finger abrasion Instructions: ED Ring Removal (Adult) Prescriptions: No Action levetiracetam 750 MG tablet 1,500 mg PO BID lamotrigine 100 tablet 200 mg PO BID venlafaxine [Effexor XR] 150 mg capsule,extended release 24hr 150 mg PO DAILY Patient Comments: TAKE 1 CAPSULE BY MOUTH EVERY DAY naproxen [Naprosyn] 500 mg tablet 500 mg PO BID PRN (Reason: pain) Qty: 20 0RF Primary Care Provider: Bruno Da Silva Referrals: Bruno Da Silva DO [Primary Care Provider] - 1-2 Weeks Activity Restrictions/Additional Instructions: Your ring was removed with ring lap cutter truer operator the ED. Print Language: Upper Sorbian Disposition Disposition: Home, Self Care
== END 2024-05-22 12:13 | disposition home or self-care (01) ==
LOC: ED 12:01
PROVIDERS: Emergency Provider Emergency Medicine; PCP Student in an Organized Health Care Education/Training Program; Visit Provider Emergency Medicine
DX: S60.415A Abrasion of left ring finger, initial encounter (principal); X58.XXXA Exposure to other specified factors, initial encounter
CPT/HCPCS: 99282; A4216

== ENCOUNTER 2025-04-02 01:25 | Emergency (ER) | payer BC, SELFPAY ==
[2025-04-02 01:26] VITALS: BP 159/80; PULSE 84; RESP 18; TEMP 36.6; O2SAT 99; BMI 36.8
--- NOTE | 2025-04-02 01:33 | EX.ED.UPPERE ---
HPI History of Present Illness Chief Complaint: Upper Extremity Injury PFSH [facility] Home Medications ?Medication ?Instructions ?Recorded ?Last Taken ?Type lamotrigine 100 mg tablet 200 mg PO BID 08/14/18 Unknown History levetiracetam 750 mg tablet 1,500 mg PO BID 08/14/18 Unknown History naproxen 500 mg tablet (Naprosyn) 500 mg PO BID PRN pain #20 tabs 09/17/21 Unknown Rx venlafaxine 150 mg 225 mg PO DAILY 09/17/21 Unknown History capsule,extended release 24 hr (Effexor XR) atorvastatin 40 mg tablet 40 mg PO DAILY 04/02/25 Unknown History lacosamide 100 mg tablet 100 mg PO BID 04/02/25 Unknown History prednisone 50 mg tablet 50 mg PO DAILY #5 tabs 04/02/25 Unknown Rx Allergy/AdvReac Type Severity Reaction Status Date / Time No Known Allergies Allergy Verified 04/02/25 01:26 Social History Smoking Status: Never smoker EXAM Physical Exam Const Vital Signs: 04/02/25 01:26 Temperature 97.8 F Temperature Source Oral Pulse Rate 84 Respiratory Rate 18 Blood Pressure 159/80 H Blood Pressure Mean 106 Pulse Ox 99 Oxygen Delivery Method Room Air MDM MDM MDM Narrative Medical decision making narrative: HISTORY OF PRESENT ILLNESS: Chief complaint: Shoulder pain 49-year-old male presents with right shoulder pain. Notes this started Monday (03/29/2025). States he lifted a couple of heavy things on Monday. Notes he took Motrin at 11 PM. He f denies facial drooping, loss of vision, slurred speech, numbness tingling loss sensation of the right upper extremity. REVIEW OF SYSTEMS: Pertinent positives: Shoulder pain Pertinent negatives: Chest pain, shortness of breath, focal weakness, numbness, loss sensation. PHYSICAL EXAM: Nursing triage notes reviewed, Vital signs reviewed Constitutional: please see mdm Neck: No stridor, no JVD, full neck ROM, trachea midline, no carotid bruits, no midline step-offs deformities noted to the cervical spine. TTP over paraspinal cervical musculature Lungs: Clear to auscultation, No wheezing or rales. No increased work of breathing, no conversational dyspnea, no accessory muscle use, no nasal flaring. No respiratory distress noted Heart: Regular rate and rhythm, No murmurs, No rubs and No gallops, 2+ distal pulses (radial, femoral, posterior tibial) in all extremities Extremities: No edema TTP over right trapezius muscle. No obvious step-offs deformities noted to right shoulder. No clavicular tenderness. Right upper extremity warm and well-perfused. Neuro: Intact 5/5 strength with ok sign (median), intact finger abduction (ulnar) intact wrist extension (radial n). Intact sensation in the radial, ulnar, and median nerve distributions. Intact axillary nerve sensation. Skin: No rash or lesions noted MEDICAL DECISION MAKING: Chief Complaint: please see HPI External records reviewed: Reviewed prior imaging studies: No recent advanced imaging of the right shoulder Factors affecting care: none Social determinants of health: none History obtained from others: none Consults: none MDM Narrative: The patient was initially hemodynamically stable, afebrile and nontoxic-appearing. Exam consistent musculoskeletal etiology I considered the following differential diagnosis: Shoulder fracture, dislocation, skeletal pain, cervical spine muscle strain, cervical radiculopathy I obtained an x-ray to further determine if the patient was suffering from a life-threatening etiology. Initially treat the patient with IM steroids and oral narcotic ALL IMAGES (IF OBTAINED) HAVE BEEN PERSONALLY REVIEWED AND INTERPRETED BY MYSELF. X-ray of the right shoulder was read and reviewed personally by myself shows no acute fracture dislocation. Radiologist agreed my interpretation. I suspect patient suffering a muscle skeletal irritation/inflammation likely cervical nerve neuropathy versus trapezius muscle strain. Will give a short course of steroids and instruct patient to practice RICE therapy. The patient and/or family, caregivers express understanding. The patient and/or family, caregivers agrees with the plan. Shared decision making: I will have a discussion with the patient and or visitors regarding risk/benefits of further testing or admission. They will be made aware of of the risk/benefits inherent in this decision they will be given the opportunity to voice understanding. Total critical care time today provided was at least 0 minutes. This excludes separately billable procedures. Critical care time (if documented) is secondary to the patient having high probability of clinically significant/life threatening deterioration in the patient's condition which required my urgent intervention. Impression: 1. Acute right shoulder pain 2. Trapezius muscle strain Dispo: Discharge home This note was generated with [employer] software. It may contain incorrect words, spelling, and punctuation that were not noted in review of the chart prior to signing. Discharge Plan Triage Chief Complaint: Upper Extremity Injury ED Provider: Marquez Olguin Dx/Rx/DC Orders Instructions: ED Neck Sprain or Strain, ED Muscle Strain, Extremity Prescriptions: New prednisone 50 mg tablet 50 mg PO DAILY Qty: 5 0RF No Action levetiracetam 750 MG tablet 1,500 mg PO BID lamotrigine 100 tablet 200 mg PO BID venlafaxine [Effexor XR] 150 mg capsule,extended release 24hr 225 mg PO DAILY naproxen [Naprosyn] 500 mg tablet 500 mg PO BID PRN (Reason: pain) Qty: 20 0RF atorvastatin 40 mg tablet 40 mg PO DAILY lacosamide 100 mg tablet 100 mg PO BID Primary Care Provider: Bruno Da Silva Referrals: Bruno Da Silva DO [Primary Care Provider, [facility]] Activity Restrictions/Additional Instructions: Thank you for trusting us with your care today! Your history and physical exam most consistent with neck/shoulder strain. This occurs via inflammation of the musculature. It is treated with time, rest and anti-inflammatories. Please take Tylenol (2 pills, 650 mg), ibuprofen (2 pills, 400 mg) every 6 hours as needed for pain and fever control. Please take prednisone as prescribed. Please return to the emergency department if your symptoms change or worsen. Specifically develop numbness, weakness, loss sensation, slurred speech, facial drooping, loss of consciousness. Please follow with your primary care physician for further outpatient evaluation and management. Print Language: Indian Disposition Disposition: Home, Self Care Discharge Date/Time: 04/02/25 04:22
--- NOTE | 2025-04-02 02:20 | RAD_ITS ---
PROCEDURE: SHOULDER MIN 2 VIEWS 04/02/2025 REASON FOR EXAM: RIGHT SHOULDER PAIN TECHNIQUE: Procedure Code: RADSH Modality: DX Procedure: SHOULDER MIN 2 VIEWS Laterality: Right COMPARISON: None. FINDINGS: Normal glenohumeral articulation. Normal acromioclavicular joint. Normal acromion. Normal humeral head and visualized proximal humerus. Normal visualized scapula. There is no demonstrated soft tissue abnormality. Normal visualized pulmonary apex. RAD/Shoulder min 2 Views IMPRESSION: No evidence for acute abnormality. Reading [facility]
--- OUTSIDE RECORDS SUMMARY | 2025-04-02 02:47 | XMS RPT_ITS | CCD ---
Author Organization [facility] Care Team Providers Care Graphic Coordinator Name Role Phone JUAN CASTRO Primary Care Unavailable MAURIZIO CUMMINS Attending Unavailable Jolly Moeller Primary Care Unavailable Deepak Valle Attending Unavailable Jolly Moeller Attending Unavailable Jloly Moeller Primary Care Unavailable Jolly Moeller Referring Unavailable Jolly Moeller Primary Care Unavailable Cade Cisneros Attending Unavailable Jolly Moeller Consulting Unavailable Jolly Moeller Primary Care Unavailable Deepak Valle Referring Unavailable Deepak Valle Attending Unavailable JOLLY MOELLER DO Primary Care Physician [phone] JOLLY MOELLER DO Attending Unavailable JOLLY MOELLER DO Primary Care Unavailable JOLLY MOELLER DO Attending Unavailable JOLLY MOELLER DO Primary Care Unavailable Medications Current Medications Medication Drug Class(es) Dates Sig (Normalized) Sig (Original) 0.5 ML semaglutide 2 MG/ML Auto-Injector (1 source) Start: 02-07-2025 End: 08-06-2025 inject 1 dose by subcutaneous injection every week semaglutide 1 mg/0.5 mL (1 mg dose) subcutaneous solution Dose : 1 mg =, Subcutaneous, qWeek, in the abdomen, thigh, or upper arm, # 9 mL, 1 Refill(s), 183.3, cm, 02/07/25 8:25:00 EDT, Height, kg, 02/07/25 8:25:00 EDT, Dosing Weight Start Date: 02/07/25 Stop Date: 08/06/25 Status: Ordered Quantity: 9.0 Unit: mL Repeat number: 2 atorvastatin 40 mg oral tablet (1 source) HMG-CoA Reductase Inhibitor Start: 02-07-2025 End: 08-06-2025 atorvastatin 40 mg oral tablet Dose : 40 mg = 1 tab(s), Oral, qHS, # 90 tab(s), 1 Refill(s), Pharmacy: [facility]/pharmacy #[id number], 183.3, cm, 02/07/25 8:25:00 EDT, Height, kg, 02/07/25 8:25:00 EDT, Dosing Weight Start Date: 02/07/25 Stop Date: 08/06/25 Status: Ordered Quantity: 90.0 Unit: tab(s) Repeat number: 2 cariprazine 3 mg oral capsule (1 source) Atypical Antipsychotic Start: 02-07-2025 End: 08-06-2025 Vraylar 3 mg oral capsule Dose : 3 mg = 1 cap(s), Oral, BID, # 180 cap(s), 1 Refill(s), Pharmacy: [facility]/pharmacy #[id number], 183.3, cm, 02/07/25 8:25:00 EDT, Height, kg, 02/07/25 8:25:00 EDT, Dosing Weight Start Date: 02/07/25 Stop Date: 08/06/25 Status: Ordered Quantity: 180.0 Unit: cap(s) Repeat number: 2 lamoTRIgine 100 mg oral tablet (3 sources) Mood Stabilizer, Anti-epileptic Agent Start: 08-14-2018 take 200 mg by mouth twice daily Lamotrigine Active 200 MG PO TWICE A DAY August 14, 2018 12:00am levETIRAcetam 750 mg oral tablet (4 sources) Start: 11-11-2020 Keppra 750 mg oral tablet Dose : 1,500 mg = 2 tab(s), Oral, BID, # 120 tab(s), 0 Refill(s) Start Date: 11/11/20 Status: Ordered Quantity: 120.0 Unit: tab(s) Repeat number: 1 Start: 08-14-2018 take 1500 mg by mout h twice daily Levetiracetam Active 1500 MG PO TWICE A DAY August 14, 2018 12:00am naproxen 500 mg oral tablet (3 sources) Nonsteroidal Anti-inflammatory Drug Start: 09-17-2021 take 1 tablet by mouth twice daily Naproxen (Naprosyn) 500 mg tablet Active 500 MG PO TWICE A DAY September 17, 2021 12:00am triamcinolone acetonide 1 mg/ml topical cream (1 source) Corticosteroid Start: 02-07-2025 End: 02-21-2025 triamcinolone 0.1% topical cream Apply 1 manuel, Topical, BID, X 14 day(s), # 60 gram(s), 0 Refill(s), Pharmacy: [facility]/pharmacy #[id number], Cream, 183.3, cm, 02/07/25 8:25:00 EDT, Height, 122.1, kg, 02/07/25 8:25:00 EDT, Dosing Weight Start Date: 02/07/25 Stop Date: 02/21/25 Status: Ordered Quantity: 60.0 Unit: g Repeat number: 1 24 hr venlafaxine 150 mg extended release oral capsule (5 sources) Serotonin and Norepinephrine Reuptake Inhibitor Start: 02-07-2025 End: 08-06-2025 venlafaxine 150 mg oral capsule, extended release Dose : 150 mg = 1 cap(s), Oral, qDay, # 90 cap(s), 1 Refill(s), Pharmacy: [facility]/pharmacy #[id number], 183.3, cm, 02/07/25 8:25:00 EDT, Height, kg, 02/07/25 8:25:00 EDT, Dosing Weight Start Date: 02/07/25 Stop Date: 08/06/25 Status: Ordered Quantity: 90.0 Unit: cap(s) Repeat number: 2 Start: 02-07-2025 take 1 capsule by [facility] [place] [facility] once daily venlafaxine 75 mg oral capsule, extended release Dose : 75 mg = 1 cap(s), Oral, qDay, increased dose, now on 225 mg daily, # 90 cap(s), 1 Refill(s), Pharmacy: [facility]/pharmacy #[id number], 183.3, cm, 02/07/25 8:25:00 EDT, Height, kg, 02/07/25 8:25:00 EDT, Dosing Weight Start Date: 02/07/25 Status: Ordered Quantity: 90.0 Unit: cap(s) Repeat number: 2 Start: 09-17-2021 take 1 capsule by [facility] [place] once daily Venlafaxine (Effexor Xr) 150 mg capsule,extended release 24hr Active 150 MG PO DAILY September 17, 2021 12:00am Completed/Discontinued Medications Medication Drug Class(es) Dates Sig (Normalized) Sig (Original) lacosamide 100 mg oral tablet (1 source) Anti-epileptic Agent Start: 08-30-2023 lacosamide 100 mg oral tablet Dose : 100 mg = 1 tab(s), BID, 0 Refill(s), 118.5 Start Date: 08/30/23 Status: Ordered Repeat number: 1 sildenafil 25 mg oral tablet (1 source) Phosphodiesterase 5 Inhibitor Start: 06-28-2023 End: 12-25-2023 sildenafil 25 mg oral tablet Dose : 25 mg = 1 tab(s), Oral, qDay, PRN activity, # 30 tab(s), 5 Refill(s), Pharmacy: [id number], 182.9, cm, 06/28/23 8:06:00 EST, Height, kg, 06/28/23 8:16:00 EST, Dosing Weight Start Date: 06/28/23 Stop Date: 12/25/23 Status: Ordered Quantity: 30.0 Unit: tab(s) Repeat number: 6 Problems Active Problems Problem Classification Problem Date Documented Date Episodic/Chronic Allergic reactions (1 source) Eczema 03-29-2023 Episodic Calculus of urinary tract (1 source) Kidney stone 11-11-2020 Episodic Diabetes mellitus with complications (5 sources) Complication due to diabetes mellitus; Translations: [Type 2 diabetes mellitus with other specified complication] Onset: 02-07-2025 Chronic Diabetes mellitus without complication (1 source) Type 2 diabetes mellitus 02-07-2025 Chronic Disorders of lipid metabolism (1 source) Hyperlipidemia 09-26-2022 Chronic Epilepsy; convulsions (3 sources) Localization-related (focal) (partial) idiopathic epilepsy and epileptic syndromes with seizures of localized onset, not intractable, without status epilepticus; Translations: [Localization-related epilepsy] Onset: 09-05-2023 07-28-2022 Chronic Epilepsy; convulsions (1 source) Seizure disorder 11-11-2020 Episodic Mood disorders (1 source) Major depression in remission 03-28-2022 Chronic Open wounds of head; neck; and trunk (1 source) Laceration without foreign body of other part of head, initial encounter; Translations: [Laceration of forehead, initial encounter] Onset: 07-24-2022 Episodic Other injuries and conditions due to external causes (1 source) Unspecified injury of head, initial encounter; Translations: [Closed head injury, initial encounter] Onset: 07-24-2022 Episodic Other lower respiratory disease (1 source) Dyspnea on exertion 11-11-2020 Episodic Other lower respiratory disease (1 source) Snoring 11-11-2020 Episodic Other male genital disorders (1 source) Impotence 03-29-2023 Chronic Other nutritional; endocrine; and metabolic disorders (1 source) Body mass index 30+ - obesity 02-29-2024 Chronic Other nutritional; endocrine; and metabolic disorders (1 source) Metabolic syndrome X 06-28-2023 Chronic Other nutritional; endocrine; and metabolic disorders (1 source) Morbid obesity 02-29-2024 Chronic Residual codes; unclassified (1 source) Hypersomnia 11-11-2020 Chronic Residual codes; unclassified (1 source) Periodic limb movement disorder 09-27-2021 Chronic Residual codes; unclassified (1 source) Family history of ischemic heart disease 08-30-2023 Episodic Residual codes; unclassified (1 source) Immunization due 04-13-2021 Episodic Residual codes; unclassified (1 source) Screening due 07-28-2022 Episodic Screening and history of mental health and substance abuse codes (1 source) Tobacco use and exposure - finding 07-28-2022 Chronic Superficial injury; contusion (1 source) Abrasion of left ring finger, initial encounter; Translations: [Abrasion of left ring finger, initial encounter] Onset: 06-19-2024 Episodic Syncope (2 sources) Syncope and collapse; Translations: [Syncope] Onset: 07-24-2022 07-28-2022 Episodic Unclassified (4 sources) Patient encounter status 11-11-2020 Past or Other Problems Problem Classification Problem Date Documented Date Episodic/Chronic Other screening for suspected conditions (not mental disorders or infectious disease) (1 source) Encounter for screening for cardiovascular disorders; Translations: [Encounter for screening for cardiovascular disorders] Onset: 03-13-2024 Episodic Results Test Name Value Interpretation Reference Range Facility .Auto Diffon 02-07-2025 Basophil, Absolute 0.0 10 3/mcL Normal 0.0-0.3 [facility] Comment on above: Performed By: #### C MP, A1C, GFR, ADIFF, ANEU, TSH, LIPID, FT4, CBC #### [facility] [address] [place], [place] [address] Basophils/100 WBC (Bld) 0.5 % Normal 0.0-2.5 [facility] Comment on above: Performed By: #### C MP, A1C, GFR, ADIFF, ANEU, TSH, LIPID, FT4, CBC #### [address] [address] Eosinophil, Absolute 0.3 10 3/mcL Normal 0.0-0.7 [facility] Comment on above: Performed By: #### C MP, A1C, GFR, ADIFF, ANEU, TSH, LIPID, FT4, CBC #### [address] [address] Eosinophils/100 WBC (Bld) 3.7 % Normal 0.0-6.0 [facility] Comment on above: Performed By: #### C MP, A1C, GFR, ADIFF, ANEU, TSH, LIPID, FT4, CBC #### [address] [address] Lymphocyte, Absolute 2.1 10 3/mcL Normal 0.9-4.3 [facility] Comment on above: Performed By: #### C MP, A1C, GFR, ADIFF, ANEU, TSH, LIPID, FT4, CBC #### [address] [address] Lymphocytes/100 WBC (Bld) 23.2 % Normal 20.0-40.0 [facility] Comment on above: Performed By: #### C MP, A1C, GFR, ADIFF, ANEU, TSH, LIPID, FT4, CBC #### [address] [address] Monocyte, Absolute 0.9 10 3/mcL Normal 0.1-1.4 [facility] Comment on above: Performed By: #### C MP, A1C, GFR, ADIFF, ANEU, TSH, LIPID, FT4, CBC #### [address] [address] Monocytes/100 WBC (Bld) 9.9 % Normal 2.0-13.0 [facility] Comment on above: Performed By: #### C MP, A1C, GFR, ADIFF, ANEU, TSH, LIPID, FT4, CBC #### [address] [address] Neutrophils/100 WBC (Bld) 62.7 % Normal 50.0-75.0 [facility] Comment on above: Performed By: #### C MP, A1C, GFR, ADIFF, ANEU, TSH, LIPID, FT4, CBC #### [facility] [address] [place], [place] [address] .GFRon 02-07-2025 Estimated Glomerular Filtration Rate 93 ml/min/1.73sqm Normal [facility] Comment on above: Result Comment: Stages of Chronic Kidney Disease (CKD) Stage Description eGFR(ml/min/1.73 sq.m.) CKD 1 Normal kidney function or >=90 normal kindney function with possible kidney damage (ex. Proteinuria) CKD 2 Kidney damage with mild loss 60-89 of kidney function CKD 3a Mild to moderate loss of kidney 45-59 function CKD 3b Moderate to severe loss of 30-44 of kindey function CKD 4 Severe loss of kidney function 15-29 CKD 5 Kidney failure <15 Note: (go live 2024) the eGFR calculation was updated to the 2020 CKD-EPI creatinine equation without a race factor to calculate the eGFR results. Performed By: #### C MP, A1C, GFR, ADIFF, ANEU, TSH, LIPID, FT4, CBC #### [address] [place] [address] [place], [place] [address] .NEUABSon 02-07-2025 Neutrophil, Absolute 5.6 10 3/mcL Normal 2.3-8.1 [facility] Comment on above: Performed By: #### C MP, A1C, GFR, ADIFF, ANEU, TSH, LIPID, FT4, CBC #### [address] [place], [place] [address] A1Con 02-07-2025 Glucose [Mass/Vol] 143 mg/dL Normal [facility] Comment on above: Result Comment: Calli mated Average Glucose calculated by equation ((28.7xA1C)-46.7) Estimated average glucose (eAG) is a calculated value from Hemoglobin A1C and is sales support representative of the average blood glucose level in the last 2-3 month period. Normal range: less than 114 mg/dL Performed By: #### C MP, A1C, GFR, ADIFF, ANEU, TSH, LIPID, FT4, CBC #### [place] [address] HbA1c (Bld) [Mass fraction] 6.6 % High 4.3-6.4 [facility] Comment on above: Performed By: #### C MP, A1C, GFR, ADIFF, ANEU, TSH, LIPID, FT4, CBC #### [place] [address] CBCon 02-07-2025 Erythrocyte distribution width (RBC) [Ratio] 14.5 % Normal 11.5-15.5 [facility] Comment on above: Performed By: #### C MP, A1C, GFR, ADIFF, ANEU, TSH, LIPID, FT4, CBC #### [place] [address] Hematocrit (Bld) [Volume fraction] 40.5 % Normal 40.0-52.0 [facility] Comment on above: Performed By: #### C MP, A1C, GFR, ADIFF, ANEU, TSH, LIPID, FT4, CBC #### [place] [address] Hgb 13.5 G/dL Normal 13.0-17.5 [facility] Comment on above: Performed By: #### C MP, A1C, GFR, ADIFF, ANEU, TSH, LIPID, FT4, CBC #### [place] [address] MCH (RBC) [Entitic mass] 27.6 pg Normal 27.0-33.0 [facility] Comment on above: Performed By: #### C MP, A1C, GFR, ADIFF, ANEU, TSH, LIPID, FT4, CBC #### [place] [address] MCHC 33.3 G/dL Normal 32.0-36.0 [facility] Comment on above: Performed By: #### C MP, A1C, GFR, ADIFF, ANEU, TSH, LIPID, FT4, CBC #### [place] [id number] MCV (RBC) [Entitic vol] 83.0 fL Normal 81.0-100.0 [facility] Comment on above: Performed By: #### C MP, A1C, GFR, ADIFF, ANEU, TSH, LIPID, FT4, CBC #### [address] [address] Platelet 224 10 3/mcL Normal 150-450 [facility] Comment on above: Performed By: #### C MP, A1C, GFR, ADIFF, ANEU, TSH, LIPID, FT4, CBC #### [address] [address] Platelet mean volume (Bld) [Entitic vol] 8.8 fL Normal 6.4-10.5 [facility] Comment on above: Performed By: #### C MP, A1C, GFR, ADIFF, ANEU, TSH, LIPID, FT4, CBC #### [address] [address] RBC 4.88 10 6/mcL Normal 4.50-6.00 [facility] Comment on above: Performed By: #### C MP, A1C, GFR, ADIFF, ANEU, TSH, LIPID, FT4, CBC #### [address] [address] WBC 9.0 10 3/mcL Normal 4.5-10.8 [facility] Comment on above: Performed By: #### C MP, A1C, GFR, ADIFF, ANEU, TSH, LIPID, FT4, CBC #### [address] [address] CMPon 02-07-2025 Albumin Level 3.3 G/dL Low 3.5-5.0 [facility] Comment on above: Performed By: #### C MP, A1C, GFR, ADIFF, ANEU, TSH, LIPID, FT4, CBC #### [address] [address] Albumin/Globulin [Mass ratio] 0.9 {ratio} Low 1.1-2.5 [facility] Comment on above: Performed By: #### C MP, A1C, GFR, ADIFF, ANEU, TSH, LIPID, FT4, CBC #### [address] [address] ALP [Catalytic activity/Vol] 109 U/L Normal 40-135 [facility] Comment on above: Performed By: #### C MP, A1C, GFR, ADIFF, ANEU, TSH, LIPID, FT4, CBC #### [place] [address] ALT [Catalytic activity/Vol] 36 U/L Normal 16-63 [facility] Comment on above: Performed By: #### C MP, A1C, GFR, ADIFF, ANEU, TSH, LIPID, FT4, CBC #### [place] [address] AST [Catalytic activity/Vol] 17 U/L Normal 10-40 [facility] Comment on above: Performed By: #### C MP, A1C, GFR, ADIFF, ANEU, TSH, LIPID, FT4, CBC #### [place] [address] Bili Total 0.4 mg/dL Normal 0.2-1.0 [facility] Comment on above: Result Comment: Use of this assay is not recommended for patients undergoing treatment with eltrombopag due to the potential for falsely elevated results. Performed By: #### C MP, A1C, GFR, ADIFF, ANEU, TSH, LIPID, FT4, CBC #### [place] [address] BUN/Creatinine Ratio 17 ratio Normal 7-27 [facility] Comment on above: Performed By: #### C MP, A1C, GFR, ADIFF, ANEU, TSH, LIPID, FT4, CBC #### [place] [id number] Calcium [Mass/Vol] 8.8 mg/dL Normal 8.4-10.2 [facility] Comment on above: Performed By: #### C MP, A1C, GFR, ADIFF, ANEU, TSH, LIPID, FT4, CBC #### [address] [address] Chloride [Moles/Vol] 104 mmol/L Normal 98-107 [facility] Comment on above: Performed By: #### C MP, A1C, GFR, ADIFF, ANEU, TSH, LIPID, FT4, CBC #### [address] [address] CO2 [Moles/Vol] 26 mmol/L Normal 22-29 [facility] Comment on above: Performed By: #### C MP, A1C, GFR, ADIFF, ANEU, TSH, LIPID, FT4, CBC #### [address] [address] Creatinine [Mass/Vol] 1.00 mg/dL Normal 0.67-1.17 [facility] Comment on above: Performed By: #### C MP, A1C, GFR, ADIFF, ANEU, TSH, LIPID, FT4, CBC #### [address] [address] Electrolyte Balance 12.0 mEq/L Normal 4.0-15.0 [facility] Comment on above: Performed By: #### C MP, A1C, GFR, ADIFF, ANEU, TSH, LIPID, FT4, CBC #### [address] [address] Globulin 3.7 G/dL Normal 2.7-4.4 [facility] Comment on above: Performed By: #### C MP, A1C, GFR, ADIFF, ANEU, TSH, LIPID, FT4, CBC #### [address] [address] Glucose [Mass/Vol] 134 mg/dL High 70-105 [facility] Comment on above: Performed By: #### C MP, A1C, GFR, ADIFF, ANEU, TSH, LIPID, FT4, CBC #### [address] [address] Potassium [Moles/Vol] 4.0 mmol/L Normal 3.5-5.1 [facility] Comment on above: Performed By: #### C MP, A1C, GFR, ADIFF, ANEU, TSH, LIPID, FT4, CBC #### [address] [address] Sodium [Moles/Vol] 142 mmol/L Normal 136-145 [facility] Comment on above: Performed By: #### C MP, A1C, GFR, ADIFF, ANEU, TSH, LIPID, FT4, CBC #### [address] [address] Total Protein 7.0 G/dL Normal 6.4-8.2 [facility] Comment on above: Performed By: #### C MP, A1C, GFR, ADIFF, ANEU, TSH, LIPID, FT4, CBC #### [address] [address] Urea nitrogen [Mass/Vol] 17 mg/dL Normal 7-18 [facility] Comment on above: Performed By: #### C MP, A1C, GFR, ADIFF, ANEU, TSH, LIPID, FT4, CBC #### [address] [address] FT4on 02-07-2025 Free T4 [Mass/Vol] 0.96 ng/dL Normal 0.76-1.46 [facility] Comment on above: Performed By: #### C MP, A1C, GFR, ADIFF, ANEU, TSH, LIPID, FT4, CBC #### [address] [address] LABORATORYOrdered By: SYSTEM SYSTEM on 02-07-2025 Albumin BCP dye [Mass/Vol] 3.3 G/dL Low 3.5 - 5.0 G/dL AO ADM SS Albumin/Globulin [Mass ratio] 0.9 {ratio} Low 1.1 - 2.5 ratio AO ADM SS ALP [Catalytic activity/Vol] 109 U/L Normal 40 - 135 U/L AO ADM SS ALT With P-5'-P [Catalytic activity/Vol] 36 U/L Normal 16 - 63 U/L AO ADM SS AST With P-5'-P [Catalytic activity/Vol] 17 U/L Normal 10 - 40 U/L AO ADM SS Basophils (Bld) [#/Vol] 0.0 103/mcL Normal 0.0 - 0.3 10^3/mcL AO Workflow SS Basophils/100 WBC (Bld) 0.5 % Normal 0.0 - 2.5 % AO Workflow SS Bilirubin [Mass/Vol] 0.4 mg/dL Normal 0.2 - 1 .0 mg/dL AO ADM SS Comment on above: Interpretive Data: U se of this assay is not recommended for patients undergoing treatment with eltrombopag due to the potential for falsely elevated results. Calcium [Mass/Vol] 8.8 mg/dL Normal 8.4 - 10. 2 mg/dL AO ADM SS Chloride [Moles/Vol] 104 mmol/L Normal 98 - 10 7 mmol/L AO ADM SS CO2 [Moles/Vol] 26 mmol/L Normal 22 - 29 mmol/L AO AD M SS Creatinine [Mass/Vol] 1.00 mg/dL Normal 0.67 - 1.17 mg/dL AO ADM SS Electrolyte Balance 12.0 mEq/L Normal 4.0 - 15 .0 mEq/L AO ADM SS Eosinophil, Absolute 0.3 103/mcL Normal 0.0 - 0 .7 10^3/mcL AO Workflow SS Eosinophils/100 WBC (Bld) 3.7 % Normal 0.0 - 6.0 % AO Workflow SS Erythrocyte distribution width (RBC) [Ratio] 14.5 % Normal 11.5 - 15.5 % AO Workflow SS Estimated Glomerular Filtration Rate 93 ml/min/1.73sqm Invalid Interpretation Code AO Chemistry S Comment on above: Interpretive Data: Stages of Chronic Kidney Disease (CKD) Stage Description eGFR(ml/min/1.73 sq.m.) CKD 1 Normal kidney function or >=90 normal kindney function with possible kidney damage (ex. Proteinuria) CKD 2 Kidney damage with mild loss 60-89 of kidney function CKD 3a Mild to moderate loss of kidney 45-59 function CKD 3b Moderate to severe loss of 30-44 of kindey function CKD 4 Severe loss of kidney function 15-29 CKD 5 Kidney failure <15 Note: (go live 2024) the eGFR calculation was updated to the 2020 CKD-EPI creatinine equation without a race factor to calculate the eGFR results. Free T4 [Mass/Vol] 0.96 ng/dL Normal 0.76 - 1. 46 ng/dL AO ADM SS Globulin 3.7 G/dL Normal 2.7 - 4.4 G/dL AO ADM SS Glucose [Mass/Vol] 134 mg/dL High 70 - 105 mg/dL AO ADM SS Glucose [Mass/Vol] 143 mg/dL Invalid Interpretation Code AO Chemistry S Comment on above: Interpretive Data: E stimated average glucose (eAG) is a calculated value from Hemoglobin A1C and is sales support representative of the average blood glucose level in the last 2-3 month period. Normal range: less than 114 mg/dL HbA1c (Bld) [Mass fraction] 6.6 % High 4.3 - 6.4 % AO ADM SS Hematocrit (Bld) [Volume fraction] 40.5 % Normal 40.0 - 52.0 % AO Workflow SS Hemoglobin (Bld) [Mass/Vol] 13.5 G/dL Normal 13.0 - 17.5 G/dL AO Workflow SS Lymphocytes (Bld) [#/Vol] 2.1 103/mcL Normal 0.9 - 4.3 10^3/mcL AO Workflow SS Lymphocytes/100 WBC (Bld) 23.2 % Normal 20.0 - 40.0 % AO Workflow SS MCH (RBC) [Entitic mass] 27.6 pg Normal 27.0 - 33.0 pg AO Workflow SS MCHC 33.3 G/dL Normal 32.0 - 36.0 G/dL AO Workflow SS MCV (RBC) [Entitic vol] 83.0 fL Normal 81.0 - 100.0 fL AO Workflow SS Monocytes (Bld) [#/Vol] 0.9 103/mcL Normal 0.1 - 1.4 10^3/mcL AO Workflow SS Monocytes/100 WBC (Bld) 9.9 % Normal 2.0 - 13.0 % AO Workflow SS Neutrophils (Bld) [#/Vol] 5.6 103/mcL Normal 2.3 - 8.1 10^3/mcL AO Workflow SS Neutrophils/100 WBC (Bld) 62.7 % Normal 50.0 - 75.0 % AO Workflow SS Platelet mean volume (Bld) [Entitic vol] 8.8 fL Normal 6.4 - 10.5 fL AO Workflow SS Platelets (Bld) [#/Vol] 224 103/mcL Normal 150 - 450 10^3/mcL AO Workflow SS Potassium [Moles/Vol] 4.0 mmol/L Normal 3.5 - 5.1 mmol/L AO ADM SS Protein [Mass/Vol] 7.0 G/dL Normal 6.4 - 8.2 G/dL AO ADM SS RBC (Bld) [#/Vol] 4.88 106/mcL Normal 4.50 - 6.0 0 10^6/mcL AO Workflow SS Sodium [Moles/Vol] 142 mmol/L Normal 136 - 145 mmol/L AO ADM SS TSH Qn 2.55 m[IU]/L Normal 0.36 - 3.74 mcIU/mL AO ADM SS Urea nitrogen [Mass/Vol] 17 mg/dL Normal 7 - 18 mg/dL AO ADM SS Urea nitrogen/Creatinine [Mass ratio] 17 ratio Normal 7 - 27 ratio AO ADM SS WBC (Bld) [#/Vol] 9.0 103/mcL Normal 4.5 - 10.8 10^3/mcL AO Workflow SS LABORATORYOrdered By: Nohemi Parker on 02-07-2025 Cholesterol [Mass/Vol] 129 mg/dL Normal 0 - 200 mg/dL AO ADM SS Comment on above: Interpretive Data: C holesterol Reference Interval: Less than 200 Desirable 200-239 Borderline high risk 240 and above High risk Cholesterol in HDL [Mass/Vol] 37 mg/dL Low 40 - 60 mg/dL AO ADM SS Cholesterol in LDL [Mass/Vol] 78 mg/dL Normal 0 - 130 mg/dL AO ADM SS Triglyceride [Mass/Vol] 72 mg/dL Normal 0 - 150 mg/dL AO ADM SS Comment on above: Interpretive Data: T riglyceride Reference Interval: Less than 150 Normal 150-199 Borderline high risk 200-499 High risk 500 or higher Very high risk LIPIDon 02-07-2025 Cholesterol [Mass/Vol] 129 mg/dL Normal 0-200 [facility] Comment on above: Result Comment: Chol esterol Reference Interval: Less than 200 Desirable 200-239 Borderline high risk 240 and above High risk Performed By: #### C MP, A1C, GFR, ADIFF, ANEU, TSH, LIPID, FT4, CBC #### [facility] [address], [place] [address] Cholesterol in HDL [Mass/Vol] 37 mg/dL Low 40-60 [facility] Comment on above: Performed By: #### C MP, A1C, GFR, ADIFF, ANEU, TSH, LIPID, FT4, CBC #### [address] [place] [place], [place] [address] Cholesterol in LDL [Mass/Vol] 78 mg/dL Normal 0-130 [facility] Comment on above: Performed By: #### C MP, A1C, GFR, ADIFF, ANEU, TSH, LIPID, FT4, CBC #### [address] [place] [place], [place] [address] Triglyceride [Mass/Vol] 72 mg/dL Normal 0-150 [facility] Comment on above: Result Comment: Trig lyceride Reference Interval: Less than 150 Normal 150-199 Borderline high risk 200-499 High risk 500 or higher Very high risk Performed By: #### C MP, A1C, GFR, ADIFF, ANEU, TSH, LIPID, FT4, CBC #### [address] [place] [address] [place], [place] [address] TSHon 02-07-2025 TSH Qn 2.55 m[IU]/L Normal 0.36-3.74 [facility] Comment on above: Performed By: #### C MP, A1C, GFR, ADIFF, ANEU, TSH, LIPID, FT4, CBC #### [address] [address] Emergency Department Summary on 05-22-2024 Emergency Department Summary [facility] Medical Records Department [address] [place] [id number] Emergency Department Summary 05/22/24 MR#: [id number] Acct: [id number] Name: NOVA MORRIS Rep #: [id number] : 1975 48 From: Cade Baldwin PCP: Dr. Jolly Moeller, DO Status:REG ER Location: ED HPI History of Present Illness Chief Complaint: Upper Extremity Injury Informant: patient Narrative Narrative: Sent from urgent care was unable to remove his ring from left ring finger. Last took off the ring a month ago over last 3 weeks increasing swelling. He states it is cutting to his skin. No fever or drainage. PFSH PFSH Home Medications ???Medication ???Instructions ???Recorded ???Last Taken ???Type lamotrigine 100 mg tablet 200 mg PO BID 08/14/18 Unknown History levetiracetam 750 mg tablet 1,500 mg PO BID 08/14/18 Unknown History naproxen 500 mg tablet (Naprosyn) 500 mg PO BID PRN pain #20 tabs 09/17/21 Unknown Rx venlafaxine 150 mg 150 mg PO DAILY 09/17/21 Unknown History capsule,extended release 24 hr (Effexor XR) Allergy/AdvReac Type Severity Reaction Status Date / Time No Known Allergies Allergy Verified 05/22/24 11:41 Social History Smoking Status: Never smoker ROS ROS ED Constitutional Constitutional ED: Denies chills or fever(s) Cardiovascular Cardiovascular: Denies chest pain Respiratory/Chest Respiratory/Chest: Denies cough Gastrointestinal Gastrointestinal: Denies abdominal pain Integumentary Reports Abrasions and other Details: Ring stuck Neurologic Neurologic: Denies paresthesias EXAM Physical Exam Const Vital Signs: 05/22/24 11:41 Temperature 98 F Temperature Source Temporal Pulse Rate 80 Respiratory Rate 16 Blood Pressure 171/106 H Blood Pressure Mean 127 Pulse Ox 97 Oxygen Delivery Method Room Air Positive well nourished and well developed General Appearance ED: well developed and NAD HEENT Reports moist mucous membranes normocephalic and atraumatic Chest Wall Chest: Negative for tenderness Resp normal respiratory effort and normal air movement Effort and Inspection: symmetric chest movement; Negative for respiratory distress Cardio regular rate, regular rhythm and no murmurs Peripheral Pulses: pulses 2+ throughout GI normal to inspection, nondistended, normoactive bowel sounds and non-tender Palpation: Negative for guarding or rebound tenderness present Back/Spine no CVA tenderness and no thoracic nor lumbar tenderness Extremity normal to inspection Extremity Narrative: Left hand: Swelling the digit no redness. Ring at the proximal phalanx is abrasions around the wound site. No drainage. General Extremety ED: Yes edema; Negative for tenderness General Extremity: edema Neuro oriented x3 and no sensory deficits noted Sensorium / Orientation: awake and alert Skin Skin Narrative: See above MDM MDM MDM Narrative Medical decision making narrative: Interventions / MDM: Differential diagnosis: Ring stuck, finger abrasion Diagnosis considered but do not suspect: N/A My EKG interpretation: N/A Imaging independently reviewed and interpreted by myself: N/A External documents reviewed: N/A Test considered but not ordered:N/A ED course: Patient was stuck ring. Nursing remove ring with a ring clearance cutter the department. Reevaluation slight abrasion to skin no drainage no bleeding. Wound care discussed with outpatient follow-up. Re-evaluation: stable Disposition discussed with patient/family/signi ficant other: Patient Case discussed with consulting clinician: N/A This note was generated with [employer] dictation software. It may contain incorrect words, spelling, and punctuation that were not noted in checking the note before signing. Discharge Plan Triage Chief Complaint: Upper Extremity Injury ED Provider: Cade Cisneros Dx/Rx/DC Orders Clinical Impression: Encounter for medical assessment, Finger abrasion Instructions: ED Ring Removal (Adult) Prescriptions: No Action levetiracetam 750 MG tablet 1,500 mg PO BID lamotrigine 100 tablet 200 mg PO BID venlafaxine [Effexor XR] 150 mg capsule,extended release 24hr 150 mg PO DAILY Patient Comments: TAKE 1 CAPSULE BY MOUTH EVERY DAY naproxen [Naprosyn] 500 mg tablet 500 mg PO BID PRN (Reason: pain) Qty: 20 0RF Primary Care Provider: Jolly Moeller Referrals: Jolyl Moeller DO [Primary Care Provider] - 1-2 Weeks Activity Restrictions/Additio nal Instructions: Your ring was removed with ring clearance cutter the ED. Print Language: Iraqi Disposition Disposition: Home, Self Care What to do if you have Problems For any increased pain, shortness of breath, bleeding, nausea or vomiting, chest pain, or any unexpec (more content not included)... Normal [facility] CBC-Complete Blood Cnt No Di ffon 02-27-2024 Erythrocyte distribution width (RBC) [Ratio] 13.8 % Normal 11.6-14.[address] [facility] Comment on above: Performed By: #### L 100.0500, L501.9985, L500.4050, L501.9910, L500.4100 #### [facility] [address] [place], [address] Hematocrit (Bld) [Volume fraction] 45.3 % Normal 40-[address] [facility] Comment on above: Performed By: #### L 100.0500, L501.9985, L500.4050, L501.9910, L500.4100 #### [facility] [address] [place], [address] Hemoglobin (Bld) [Mass/Vol] 14.3 g/dL Normal 13.0-16.[address] [facility] Comment on above: Performed By: #### L 100.0500, L501.9985, L500.4050, L501.9910, L500.4100 #### [facility] [address] [place], [address] MCH (RBC) [Entitic mass] 26.9 pg Low 27.0-32.[address] [facility] Comment on above: Performed By: #### L 100.0500, L501.9985, L500.4050, L501.9910, L500.4100 #### [facility] [address] [place], [address] MCHC (RBC) [Mass/Vol] 31.6 g/dL Low 32-36 [facility] Comment on above: Performed By: #### L 100.0500, L501.9985, L500.4050, L501.9910, L500.4100 #### [facility] [address] [place], [address] MCV (RBC) [Entitic vol] 85.3 fL Normal 80-[address] [facility] Comment on above: Performed By: #### L 100.0500, L501.9985, L500.4050, L501.9910, L500.4100 #### [facility] [address] [place], [address] Platelet mean volume (Bld) [Entitic vol] 10.4 fL Normal 6.2-12.[address] [facility] Comment on above: Performed By: #### L 100.0500, L501.9985, L500.4050, L501.9910, L500.4100 #### [facility] [address] [place], [address] Platelets (Bld) [#/Vol] 287 10*3/uL Normal 150-[address] [facility] Comment on above: Performed By: #### L 100.0500, L501.9985, L500.4050, L501.9910, L500.4100 #### [facility] [address] [place], [address] RBC (Bld) [#/Vol] 5.31 10*6/uL Normal 4.6-6.2 [facility] Comment on above: Performed By: #### L 100.0500, L501.9985, L500.4050, L501.9910, L500.4100 #### [facility] [address] [place], [address] RDW SD 43.0 fl Normal 35.1-43.[address] [facility] Comment on above: Performed By: #### L 100.0500, L501.9985, L500.4050, L501.9910, L500.4100 #### [facility] [address] [place], [address] WBC (Bld) [#/Vol] 8.3 10*3/uL Normal 4.4-11.0 [facility] Comment on above: Performed By: #### L 100.0500, L501.9985, L500.4050, L501.9910, L500.4100 #### [facility] [address] [place], [address] Comprehensive Metabolic Prof [facility] 02-27-2024 Albumin [Mass/Vol] 3.4 g/dL Normal 3.2-5.0 [facility] Comment on above: Performed By: #### L 100.0500, L501.9985, L500.4050, L501.9910, L500.4100 #### [facility] [address] [place], [address] Albumin/Globulin [Mass ratio] 0.9 {ratio} Normal 0.9-2.[address] [facility] Comment on above: Performed By: #### L 100.0500, L501.9985, L500.4050, L501.9910, L500.4100 #### [facility] [address] [place], [address] ALK P 88 U/L Normal 45-[address] [facility] Comment on above: Performed By: #### L 100.0500, L501.9985, L500.4050, L501.9910, L500.4100 #### [facility] [address] [place], [address] ALT [Catalytic activity/Vol] 50 U/L Normal 16-[address] [facility] Comment on above: Performed By: #### L 100.0500, L501.9985, L500.4050, L501.9910, L500.4100 #### [facility] [address] [place], [address] AST [Catalytic activity/Vol] 23 U/L Normal 15-[address] [facility] Comment on above: Performed By: #### L 100.0500, L501.9985, L500.4050, L501.9910, L500.4100 #### [facility] [address] [place], [address] Bilirubin [Mass/Vol] 0.30 mg/dL Normal 0.20-1.00 [facility] Comment on above: Result Comment: For patients on eltrombopag therapy, use of [place] TBIL is not recommended. Performed By: #### L 100.0500, L501.9985, L500.4050, L501.9910, L500.4100 #### [facility] [address] [place], [address] BUN/CRE 26.1 RATIO High 10-[address] [facility] Comment on above: Performed By: #### L 100.0500, L501.9985, L500.4050, L501.9910, L500.4100 #### [facility] [address] [place], [address] CA,Total 8.8 mg/dL Normal 8.5-10.[address] [facility] Comment on above: Performed By: #### L 100.0500, L501.9985, L500.4050, L501.9910, L500.4100 #### [facility] [address] [place], [address] Chloride [Moles/Vol] 107 mmol/L Normal 98-107 [facility] Comment on above: Performed By: #### L 100.0500, L501.9985, L500.4050, L501.9910, L500.4100 #### [facility] [address] [place], [address] CO2 [Moles/Vol] 27.0 mmol/L Normal 21.0-32.[address] [facility] Comment on above: Performed By: #### L 100.0500, L501.9985, L500.4050, L501.9910, L500.4100 #### [facility] [address] [place], [address] Creatinine [Mass/Vol] 1.00 mg/dL Normal 0.70-1.30 [facility] Comment on above: Result Comment: The validity of the calculated GFR GFRAA in patients over 70 years has not been determined. Clinical correlation is essential. Performed By: #### L 100.0500, L501.9985, L500.4050, L501.9910, L500.4100 #### [facility] [address] [place], [address] EST GFR - AA 104 mL/min Normal >[address] [facility] Comment on above: Result Comment: Afri can [place] GFR Calc Performed By: #### L 100.0500, L501.9985, L500.4050, L501.9910, L500.4100 #### [facility] [address] [place], [address] GAP 5 Normal 5-[address] [facility] Comment on above: Performed By: #### L 100.0500, L501.9985, L500.4050, L501.9910, L500.4100 #### [facility] [address] [place], [address] GFR/1.73 sq M.predicted among non-blacks MDRD (S/P/Bld) [Vol rate/Area] 86 mL/min/{1.73_m2} Normal >[address] [facility] Comment on above: Result Comment: Non- GFR Calc Performed By: #### L 100.0500, L501.9985, L500.4050, L501.9910, L500.4100 #### [facility] [address] [place], [address] Globulin (S) [Mass/Vol] 3.8 g/dL Normal 2.2-4.[address] [facility] Comment on above: Performed By: #### L 100.0500, L501.9985, L500.4050, L501.9910, L500.4100 #### [facility] [address] [place], [address] Glucose [Mass/Vol] 102 mg/dL Normal 74-106 [facility] Comment on above: Result Comment: Fast ing Glucose result from 100 to 125 mg/dL suggests IMPAIRED HOMEOSTASIS per A.D.A. criteria. Performed By: #### L 100.0500, L501.9985, L500.4050, L501.9910, L500.4100 #### [facility] [address] [place], [address] Potassium [Moles/Vol] 4.3 mmol/L Normal 3.5-5.1 [facility] Comment on above: Performed By: #### L 100.0500, L501.9985, L500.4050, L501.9910, L500.4100 #### [facility] [address] [place], [address] Sodium [Moles/Vol] 139 mmol/L Normal 136-145 [facility] Comment on above: Performed By: #### L 100.0500, L501.9985, L500.4050, L501.9910, L500.4100 #### [facility] [address] [place], [address] T PROT 7.2 g/dL Normal 6.4-8.[address] [facility] Comment on above: Performed By: #### L 100.0500, L501.9985, L500.4050, L501.9910, L500.4100 #### [facility] [address] [place], [address] Urea nitrogen [Mass/Vol] 26 mg/dL High 7-[address] [facility] Comment on above: Performed By: #### L 100.0500, L501.9985, L500.4050, L501.9910, L500.4100 #### [facility] [address] [place], [address] Hemoglobin A1con 02-27-2024 HbA1c (Bld) [Mass fraction] 5.9 % High 3.8-5.[address] [facility] Comment on above: Result Comment: Norm al < 5.7 % Prediabetic 5.7 - 6.4 % Diabetic >or= 6.5 % Please note range changes. Performed By: #### L 100.0500, L501.9985, L500.4050, L501.9910, L500.4100 #### [facility] [address] [place], [address] Lipid Profileon 02-27-2024 Cholesterol [Mass/Vol] 198 mg/dL Normal 200 [facility] Comment on above: Result Comment: <200 mg/dL Desirable 200-240 mg/dL Borderline >240 mg/dL High Risk Performed By: #### L 100.0500, L501.9985, L500.4050, L501.9910, L500.4100 #### [facility] [address] [place], [address] Cholesterol in HDL [Mass/Vol] 41 mg/dL Normal [facility] Comment on above: Result Comment: The drugs N-Acetylcysteine and Metamizole may falsely depress this assay. Reference Range HDL <40 mg/dL Low HDL Cholesterol HDL >or= 60 mg/dL High HDL Cholesterol Performed By: #### L 100.0500, L501.9985, L500.4050, L501.9910, L500.4100 #### [facility] [address] [place], [address] Cholesterol in LDL [Mass/Vol] 139 mg/dL High 0-[address] [facility] Comment on above: Performed By: #### L 100.0500, L501.9985, L500.4050, L501.9910, L500.4100 #### [facility] [address] [place], [address] Cholesterol in VLDL [Mass/Vol] 18 mg/dL Normal 5-[address] [facility] Comment on above: Performed By: #### L 100.0500, L501.9985, L500.4050, L501.9910, L500.4100 #### [facility] [address] [place], [address] Triglyceride [Mass/Vol] 89 mg/dL Normal [facility] Comment on above: Result Comment: The drugs N-Acetylcysteine and Metamizole may falsely depress this assay. Serum Triglycerides Reference Interval Normal <150 mg/dL Borderline high 150 - 199 mg/dL High 200 - 499 mg/dL Very High > or = 500 mg/dL Performed By: #### L 100.0500, L501.9985, L500.4050, L501.9910, L500.4100 #### [facility] [address] [place], [address] PSA,Total - Annual Screenon 02-27-2024 PSA,TOT SCREEN 1.23 ng/mL Normal 0.00-4.[address] [facility] Comment on above: Result Comment: This test was performed using the TPSA assay method for the [employer] chemistry system. Values obtained with different assay methods cannot be used interchangably. When changing PSA assays in the course of monitoring a patient, additional sequential testing should be carried out to confirm baseline values. Performed By: #### L 100.0500, L501.9985, L500.4050, L501.9910, L500.4100 #### [facility] [address] [place], [address] Miscellaneous Lab Procedureo n 09-14-2023 [facility] LAB TEST Normal [facility] Comment on above: Order Comment: CMP.L IPID,CBC FOR DR MOELLER MEDICATION LEVEL FOR DR VALLE LACOSAMIDE LEVEL [id number] RED,SER/RT LACOSAMIDE LEVEL [id number] RED,SER/RT Result Comment: TEST RESULTS LIMITS Lacosamide 4.7 Low ug/mL 5.0-10.0 Limit of Detection 0.5 Mean plasma concentrations following maintenance dose 200 mg/day 4.99 +/- 2.51 ug/mL 400 mg/day 9.35 +/- 4.22 ug/mL 600 mg/day 12.46 +/- 5.60 ug/mL TESTING PERFORMED AT [facility]. ORIGINAL REPORT ON FILE IN LAB CONTAINS ADDITIONAL TEST SITE INFORMATION. Performed By: #### L 500.4050, L801.1541, L500.4100, L100.0500 #### [facility] [address] [place], [address] Basophil percentageOrdered B y: Deepak Valle on 08-29-2023 Bilirubin [Mass/Vol] 0.50 mg/dL 0.20-1.00 [facility] Comment on above: For patients on eltr ombopag therapy, use of [place] TBIL is not recommended. Chloride [Moles/Vol] 107 mmol/L 98-107 [facility] Cholesterol [Mass/Vol] 210 mg/dL <200 [facility] Comment on above: <200 mg/dL Desirable 200-240 mg/dL Borderline >240 mg/dL High Risk Glucose [Mass/Vol] 102 mg/dL 74-106 [facility] Comment on above: Fasting Glucose resu lt from 100 to 125 mg/dL suggests IMPAIRED HOMEOSTASIS per A.D.A. criteria. Hemoglobin (Bld) [Mass/Vol] 14.9 g/dL 13.0-16.[address] [facility] Potassium [Moles/Vol] 4.0 mmol/L 3.5-5.1 [facility] Protein [Mass/Vol] 7.4 g/dL 6.4-8.2 [facility] Sodium [Moles/Vol] 138 mmol/L 136-145 [facility] Triglyceride [Mass/Vol] 85 mg/dL <[address] [facility] Comment on above: The drugs N-Acetylcy steine and Metamizole may falsely depress this assay.Serum Triglycerides Reference Interval Normal <150 mg/dL Borderline high 150 - 199 mg/dL High 200 - 499 mg/dL Very High > or = 500 mg/dL WBC (Bld) [#/Vol] 10.0 10*3/uL 4.4-11.0 [facility] CBC-Complete Blood Cnt No Di ffon 08-29-2023 Erythrocyte distribution width (RBC) [Ratio] 14.6 % Normal 11.6-14.[address] [facility] Comment on above: Order Comment: CMP.L IPID,CBC FOR DR MOELLER MEDICATION LEVEL FOR DR VALLE Performed By: #### L 500.4050, L801.1541, L500.4100, L100.0500 #### [facility] [address] [place], [address] Hematocrit (Bld) [Volume fraction] 45.8 % Normal 40-[address] [facility] Comment on above: Order Comment: CMP.L IPID,CBC FOR DR MOELLER MEDICATION LEVEL FOR DR VALLE Performed By: #### L 500.4050, L801.1541, L500.4100, L100.0500 #### [facility] [address] [place], [address] Hemoglobin (Bld) [Mass/Vol] 14.9 g/dL Normal 13.0-16.[address] [facility] Comment on above: Order Comment: CMP.L IPID,CBC FOR DR MOELLER MEDICATION LEVEL FOR DR VALLE Performed By: #### L 500.4050, L801.1541, L500.4100, L100.0500 #### [facility] [address] [place], [address] MCH (RBC) [Entitic mass] 27.5 pg Normal 27.0-32.[address] [facility] Comment on above: Order Comment: CMP.L IPID,CBC FOR DR MOELLER MEDICATION LEVEL FOR DR VALLE Performed By: #### L 500.4050, L801.1541, L500.4100, L100.0500 #### [facility] [address] [place], [address] MCHC (RBC) [Mass/Vol] 32.5 g/dL Normal 32-36 [facility] Comment on above: Order Comment: CMP.L IPID,CBC FOR DR MOELLER MEDICATION LEVEL FOR DR VALLE Performed By: #### L 500.4050, L801.1541, L500.4100, L100.0500 #### [facility] [address] [place], [address] MCV (RBC) [Entitic vol] 84.7 fL Normal 80-[address] [facility] Comment on above: Order Comment: CMP.L IPID,CBC FOR DR MOELLER MEDICATION LEVEL FOR DR VALLE Performed By: #### L 500.4050, L801.1541, L500.4100, L100.0500 #### [facility] [address] [place], [address] Platelet mean volume (Bld) [Entitic vol] 10.3 fL Normal 6.2-12.[address] [facility] Comment on above: Order Comment: CMP.L IPID,CBC FOR DR MOELLER MEDICATION LEVEL FOR DR VALLE Performed By: #### L 500.4050, L801.1541, L500.4100, L100.0500 #### [facility] [address] [place], [address] Platelets (Bld) [#/Vol] 295 10*3/uL Normal 150-[address] [facility] Comment on above: Order Comment: CMP.L IPID,CBC FOR DR MOELLER MEDICATION LEVEL FOR DR VALLE Performed By: #### L 500.4050, L801.1541, L500.4100, L100.0500 #### [facility] [address] [place], [address] RBC (Bld) [#/Vol] 5.41 10*6/uL Normal 4.6-6.2 [facility] Comment on above: Order Comment: CMP.L IPID,CBC FOR DR MOELLER MEDICATION LEVEL FOR DR VALLE Performed By: #### L 500.4050, L801.1541, L500.4100, L100.0500 #### [facility] [address] [place], [address] RDW SD 45.0 fl High 35.1-43.[address] [facility] Comment on above: Order Comment: CMP.L IPID,CBC FOR DR MOELLER MEDICATION LEVEL FOR DR VALLE Performed By: #### L 500.4050, L801.1541, L500.4100, L100.0500 #### [facility] [address] [place], [address] WBC (Bld) [#/Vol] 10.0 10*3/uL Normal 4.4-11.0 [facility] Comment on above: Order Comment: CMP.L IPID,CBC FOR DR MOELLER MEDICATION LEVEL FOR DR VALLE Performed By: #### L 500.4050, L801.1541, L500.4100, L100.0500 #### [facility] [address] [place], [address] Comprehensive Metabolic Prof ilon 08-29-2023 Albumin [Mass/Vol] 3.5 g/dL Normal 3.2-5.0 [facility] Comment on above: Order Comment: CMP.L IPID,CBC FOR DR MOELLER MEDICATION LEVEL FOR DR VALLE LACOSAMIDE LEVEL [id number] RED,SER/RT Performed By: #### L 500.4050, L801.1541, L500.4100, L100.0500 #### [facility] [address] [place], [address] Albumin/Globulin [Mass ratio] 0.9 {ratio} Normal 0.9-2.[address] [facility] Comment on above: Order Comment: CMP.L IPID,CBC FOR DR MOELLER MEDICATION LEVEL FOR DR VALLE LACOSAMIDE LEVEL [id number] RED,SER/RT Performed By: #### L 500.4050, L801.1541, L500.4100, L100.0500 #### [facility] [address] [place], [address] ALK P 80 U/L Normal 45-[address] [facility] Comment on above: Order Comment: CMP.L IPID,CBC FOR DR MOELLER MEDICATION LEVEL FOR DR VALLE LACOSAMIDE LEVEL [id number] RED,SER/RT Performed By: #### L 500.4050, L801.1541, L500.4100, L100.0500 #### [facility] [address] [place], [address] ALT [Catalytic activity/Vol] 62 U/L High 16-[address] [facility] Comment on above: Order Comment: CMP.L IPID,CBC FOR DR MOELLER MEDICATION LEVEL FOR DR VALLE LACOSAMIDE LEVEL [id number] RED,SER/RT Performed By: #### L 500.4050, L801.1541, L500.4100, L100.0500 #### [facility] [address] [place], [address] AST [Catalytic activity/Vol] 21 U/L Normal 15-[address] [facility] Comment on above: Order Comment: CMP.L IPID,CBC FOR DR MOELLER MEDICATION LEVEL FOR DR VALLE LACPRICILAMIDE LEVEL [id number] RED,SER/RT Performed By: #### L 500.4050, L801.1541, L500.4100, L100.0500 #### [facility] [address] [place], [address] Bilirubin [Mass/Vol] 0.50 mg/dL Normal 0.20-1.00 [facility] Comment on above: Order Comment: CMP.L IPID,CBC FOR DR MOELLER MEDICATION LEVEL FOR DR VALLE LACOSAMIDE LEVEL [id number] RED,SER/RT Result Comment: For patients on eltrombopag therapy, use of [place]ension [place] TBIL is not recommended. Performed By: #### L 500.4050, L801.1541, L500.4100, L100.0500 #### [facility] [address] [place], [address] BUN/CRE 20.6 RATIO High 10-[address] [facility] Comment on above: Order Comment: CMP.L IPID,CBC FOR DR MOELLER MEDICATION LEVEL FOR DR VALLE LACOSAMIDE LEVEL [id number] RED,SER/RT Performed By: #### L 500.4050, L801.1541, L500.4100, L100.0500 #### [facility] [address] [place], [address] CA,Total 8.5 mg/dL Normal 8.5-10.[address] [facility] Comment on above: Order Comment: CMP.L IPID,CBC FOR DR MOELLER MEDICATION LEVEL FOR DR LEONARD LACOSAMIDE LEVEL [id number] RED,SER/RT Performed By: #### L 500.4050, L801.1541, L500.4100, L100.0500 #### [facility] [address] [facility] [place], [address] Chloride [Moles/Vol] 107 mmol/L Normal 98-107 [facility] Comment on above: Order Comment: CMP.L IPID,CBC FOR DR MOELLER MEDICATION LEVEL FOR DR VALLE LACOSAMIDE LEVEL [id number] RED,SER/RT Performed By: #### L 500.4050, L801.1541, L500.4100, L100.0500 #### [facility] [address] [facility] [place], [address] CO2 [Moles/Vol] 26.0 mmol/L Normal 21.0-32.[address] [facility] Comment on above: Order Comment: CMP.L IPID,CBC FOR DR MOELLER MEDICATION LEVEL FOR DR VALLE LACOSAMIDE LEVEL [id number] RED,SER/RT Performed By: #### L 500.4050, L801.1541, L500.4100, L100.0500 #### [facility] [address] [place], [address] Creatinine [Mass/Vol] 1.07 mg/dL Normal 0.70-1.30 [facility] Comment on above: Order Comment: CMP.L IPID,CBC FOR DR MOELLER MEDICATION LEVEL FOR DR LEONARD LACOSAMIDE LEVEL [id number] RED,SER/RT Result Comment: The validity of the calculated GFR GFRAA in patients over 70 years has not been determined. Clinical correlation is essential. Performed By: #### L 500.4050, L801.1541, L500.4100, L100.0500 #### [facility] [address] [place], [address] EST GFR - AA 96 mL/min Normal >[address] [facility] Comment on above: Order Comment: CMP.L IPID,CBC FOR DR MOELLER MEDICATION LEVEL FOR DR LEONARD GAINESMIDE LEVEL [id number] RED,SER/RT Result Comment: Afri can [place] GFR Calc Performed By: #### L 500.4050, L801.1541, L500.4100, L100.0500 #### [facility] [address] [place], [address] GAP 5 Normal 5-[address] [facility] Comment on above: Order Comment: CMP.L IPID,CBC FOR DR MOELLER MEDICATION LEVEL FOR DR LEONARD GAINESMIDE LEVEL [id number] RED,SER/RT Performed By: #### L 500.4050, L801.1541, L500.4100, L100.0500 #### [facility] [address] [place], [address] GFR/1.73 sq M.predicted among non-blacks MDRD (S/P/Bld) [Vol rate/Area] 79 mL/min/{1.73_m2} Normal >[address] [facility] Comment on above: Order Comment: CMP.L IPID,CBC FOR DR MOELLER MEDICATION LEVEL FOR DR LEONARD GAINESMIDE LEVEL [id number] RED,SER/RT Result Comment: Non- GFR Calc Performed By: #### L 500.4050, L801.1541, L500.4100, L100.0500 #### [facility] [address] [place], [address] Globulin (S) [Mass/Vol] 3.9 g/dL Normal 2.2-4.[address] [facility] Comment on above: Order Comment: CMP.L IPID,CBC FOR DR MOELLER MEDICATION LEVEL FOR DR LEONARD LACOSAMIDE LEVEL [id number] RED,SER/RT Performed By: #### L 500.4050, L801.1541, L500.4100, L100.0500 #### [facility] [address] [place], [address] Glucose [Mass/Vol] 102 mg/dL Normal 74-106 [facility] Comment on above: Order Comment: CMP.L IPID,CBC FOR DR MOELLER MEDICATION LEVEL FOR DR LEONARD LACOSAMIDE LEVEL [id number] RED,SER/RT Result Comment: Fast ing Glucose result from 100 to 125 mg/dL suggests IMPAIRED HOMEOSTASIS per A.D.A. criteria. Performed By: #### L 500.4050, L801.1541, L500.4100, L100.0500 #### [facility] [address] [place], [address] Potassium [Moles/Vol] 4.0 mmol/L Normal 3.5-5.1 [facility] Comment on above: Order Comment: CMP.L IPID,CBC FOR DR MOELLER MEDICATION LEVEL FOR DR LEONARD LACOSAMIDE LEVEL [id number] RED,SER/RT Performed By: #### L 500.4050, L801.1541, L500.4100, L100.0500 #### [facility] [address] [place], [address] Sodium [Moles/Vol] 138 mmol/L Normal 136-145 [facility] Comment on above: Order Comment: CMP.L IPID,CBC FOR DR MOELLER MEDICATION LEVEL FOR DR LEONARD LACOSAMIDE LEVEL [id number] RED,SER/RT Performed By: #### L 500.4050, L801.1541, L500.4100, L100.0500 #### [facility] [address] [place], [address] T PROT 7.4 g/dL Normal 6.4-8.[address] [facility] Comment on above: Order Comment: CMP.L IPID,CBC FOR DR MOELLER MEDICATION LEVEL FOR DR VALLE LACOSAMIDE LEVEL [id number] RED,SER/RT Performed By: #### L 500.4050, L801.1541, L500.4100, L100.0500 #### [facility] [address] [place], [place], [id number] Urea nitrogen [Mass/Vol] 22 mg/dL High 7-[address] [facility] Comment on above: Order Comment: CMP.L IPID,CBC FOR DR MOELLER MEDICATION LEVEL FOR DR VALLE LACOSAMIDE LEVEL [id number] RED,SER/RT Performed By: #### L 500.4050, L801.1541, L500.4100, L100.0500 #### [facility] [address] [place], [place], [address] Determination of erythrocyte mean corpuscular volume (MCV)Ordered By: Deepak Valle on 08-29-2023 MCV (RBC) [Entitic vol] 84.7 fL 80-[address] [facility] Erythrocyte distribution wid th ratioOrdered By: Deepak Valle on 08-29-2023 Erythrocyte distribution width (RBC) [Ratio] 14.6 % 11.6-14.[address] [facility] Erythrocyte distribution wid th standard deviationOrdered By: Deepak Valle on 08-29-2023 Erythrocyte distribution width (RBC) [Entitic vol] 45.0 fL 35.1-43.[address] [facility] Hematocrit Auto (Bld) [Volum e fraction]Ordered By: Deepakkedar Valle on 08-29-2023 Hematocrit (Bld) [Volume fraction] 45.8 % 40-[address] [facility] - Chemistry and C hemistry - challengeOrdered By: Deepak Valle on 08-29-2023 Albumin/Globulin [Mass ratio] 0.9 {ratio} 0.9-2.[address] [facility] ALP [Catalytic activity/Vol] 80 U/L 45-[address] [facility] ALT [Catalytic activity/Vol] 62 U/L 16-[address] [facility] Cholesterol in HDL [Mass/Vol] 39 mg/dL >[address] [facility] Comment on above: The drugs N-Acetylcy steine and Metamizole may falsely depress this assay. Reference Range HDL <40 mg/dL Low HDL Cholesterol HDL >or= 60 mg/dL High HDL Cholesterol Cholesterol in LDL [Mass/Vol] 154 mg/dL 0-[address] [facility] CO2 [Moles/Vol] 26.0 mmol/L 21.0-32.[address] [facility] Globulin (S) [Mass/Vol] 3.9 g/dL 2.2-4.[address] [facility] Urea nitrogen/Creatinine [Mass ratio] 20.6 mg/mg 10-[address] [facility] - Hematology and Cell countsOrdered By: Deepak Valle on 08-29-2023 MCH (RBC) [Entitic mass] 27.5 pg 27.0-32.[address] [facility] MCHC (RBC) [Mass/Vol] 32.5 g/dL 32-36 [facility] Platelet mean volume (Bld) [Entitic vol] 10.3 fL 6.2-12.[address] [facility] Platelets (Bld) [#/Vol] 295 10*3/uL 150-[address] [facility] Lipid Profileon 08-29-2023 Cholesterol [Mass/Vol] 210 mg/dL High 200 [facility] Comment on above: Order Comment: CMP.L IPID,CBC FOR DR MOELLER MEDICATION LEVEL FOR DR VALLE LACOSAMIDE LEVEL [id number] RED,SER/RT Result Comment: <200 mg/dL Desirable 200-240 mg/dL Borderline >240 mg/dL High Risk Performed By: #### L 500.4050, L801.1541, L500.4100, L100.0500 #### [facility] [address] [facility] [place], [address] Cholesterol in HDL [Mass/Vol] 39 mg/dL Low [facility] Comment on above: Order Comment: CMP.L IPID,CBC FOR DR MOELLER MEDICATION LEVEL FOR DR VALLE LACOSAMIDE LEVEL [id number] RED,SER/RT Result Comment: The drugs N-Acetylcysteine and Metamizole may falsely depress this assay. Reference Range HDL <40 mg/dL Low HDL Cholesterol HDL >or= 60 mg/dL High HDL Cholesterol Performed By: #### L 500.4050, L801.1541, L500.4100, L100.0500 #### [facility] [address] [place], [address] Cholesterol in LDL [Mass/Vol] 154 mg/dL High 0-[address] [facility] Comment on above: Order Comment: CMP.L IPID,CBC FOR DR MOELLER MEDICATION LEVEL FOR DR VALLE LACOSAMIDE LEVEL [id number] RED,SER/RT Performed By: #### L 500.4050, L801.1541, L500.4100, L100.0500 #### [facility] [address] [facility] [place], [address] Cholesterol in VLDL [Mass/Vol] 17 mg/dL Normal 5-[address] [facility] Comment on above: Order Comment: CMP.L IPID,CBC FOR DR MOELLER MEDICATION LEVEL FOR DR VALLE LACOSAMIDE LEVEL [id number] RED,SER/RT Performed By: #### L 500.4050, L801.1541, L500.4100, L100.0500 #### [facility] [address] [facility] [address] [place], [address] Triglyceride [Mass/Vol] 85 mg/dL Normal [facility] Comment on above: Order Comment: CMP.L IPID,CBC FOR DR MOELLER MEDICATION LEVEL FOR DR VALLE LACOSAMIDE LEVEL [id number] RED,SER/RT Result Comment: The drugs N-Acetylcysteine and Metamizole may falsely depress this assay. Serum Triglycerides Reference Interval Normal <150 mg/dL Borderline high 150 - 199 mg/dL High 200 - 499 mg/dL Very High > or = 500 mg/dL Performed By: #### L 500.4050, L801.1541, L500.4100, L100.0500 #### [facility] [address] [place], [address] No Panel InformationOrdered By: Deepak Valle on 08-29-2023 Estimated GFR (MDRD) Amer 96 mL/min >[address] [facility] Comment on above: GFR Calc Estimated GFR (MDRD) Non-Af Amer 79 mL/min >[address] [facility] Comment on above: Non- GFR Calc VLDL Cholesterol 17 mg/dL 5-[address] [facility] RBC Auto (Bld) [#/Vol]Ordere d By: Deepak Valle on 08-29-2023 RBC (Bld) [#/Vol] 5.41 10*6/uL 4.6-6.2 [facility] Serum or plasma calcium new urement (mass/volume)Ordered By: Deepak Valle on 08-29-2023 Calcium [Mass/Vol] 8.5 mg/dL 8.5-10.1 [facility] Serum or plasma creatinine m easurement (mass/volume)Ordered By: Deepak Valle on 08-29-2023 Creatinine [Mass/Vol] 1.07 mg/dL 0.70-1.30 [facility] Comment on above: The validity of the calculated GFR & GFRAA in patients over 70 years has not been determined. Clinical correlation is essential. Serum or plasma urea nitroge n measurement (mass/volume)Ordered By: Deepak Valle on 08-29-2023 Urea nitrogen [Mass/Vol] 22 mg/dL 7-[address] [facility] Thin prep Papanicolaou smear with manual screeningOrdered By: Deepak Valle on 08-29-2023 Thin prep Papanicolaou smear with manual screening 3.5 g/dL 3.2-5.[address] [facility] Thin prep Papanicolaou smear with manual screening 21 U/L 15-[address] [facility] Thin prep Papanicolaou smear with manual screening 5 5-[address] [facility] Basophil percentageOrdered B y: Dr. Moeller on 09-23-2022 Bilirubin [Mass/Vol] 0.30 mg/dL 0.20-1.00 [facility] Comment on above: For patients on eltr ombopag therapy, use of [place] TBIL is not recommended. Chloride [Moles/Vol] 108 mmol/L 98-107 [facility] Cholesterol [Mass/Vol] 193 mg/dL <200 [facility] Comment on above: <200 mg/dL Desirable 200-240 mg/dL Borderline >240 mg/dL High Risk Glucose [Mass/Vol] 115 mg/dL 74-106 [facility] Comment on above: Fasting Glucose resu lt from 100 to 125 mg/dL suggests IMPAIRED HOMEOSTASIS per A.D.A. criteria. Potassium [Moles/Vol] 4.1 mmol/L 3.5-5.1 [facility] Protein [Mass/Vol] 7.3 g/dL 6.4-8.2 [facility] Sodium [Moles/Vol] 141 mmol/L 136-145 [facility] Triglyceride [Mass/Vol] 80 mg/dL <[address] [facility] Comment on above: The drugs N-Acetylcy steine and Metamizole may falsely depress this assay.Serum Triglycerides Reference Interval Normal <150 mg/dL Borderline high 150 - 199 mg/dL High 200 - 499 mg/dL Very High > or = 500 mg/dL WBC (Bld) [#/Vol] 8.9 10*3/uL 4.4-11.0 [facility] Blood erythrocytes count (nu mber/volume)Ordered By: Dr. Moeller on 09-23-2022 RBC (Bld) [#/Vol] 5.18 10*6/uL 4.6-6.2 [facility] Blood hemoglobin measurement (mass/volume)Ordered By: Dr. Moeller on 09-23-2022 Hemoglobin (Bld) [Mass/Vol] 13.8 g/dL 13.0-16.[address] [facility] Blood platelet mean volumeOr dered By: Dr. Moeller on 09-23-2022 Platelet mean volume (Bld) [Entitic vol] 10.3 fL 6.2-12.[address] [facility] Determination of erythrocyte mean corpuscular volume (MCV)Ordered By: Dr. Moeller on 09-23-2022 MCV (RBC) [Entitic vol] 84.4 fL 80-[address] [facility] Hematocrit Auto (Bld) [Volum e fraction]Ordered By: Dr. Moeller on 09-23-2022 Hematocrit (Bld) [Volume fraction] 43.7 % 40-[address] [facility] - Chemistry and C hemistry - challengeOrdered By: Dr. Moeller on 09-23-2022 ALP [Catalytic activity/Vol] 89 U/L 45-[address] [facility] ALT [Catalytic activity/Vol] 43 U/L 16-[address] [facility] CO2 [Moles/Vol] 27.0 mmol/L 21.0-32.[address] [facility] Globulin (S) [Mass/Vol] 3.7 g/dL 2.2-4.[address] [facility] Urea nitrogen/Creatinine [Mass ratio] 25.4 mg/mg 10-[address] [facility] - Hematology and Cell countsOrdered By: Dr. Moeller on 09-23-2022 Erythrocyte distribution width (RBC) [Entitic vol] 44.6 fL 35.1-43.[address] [facility] Erythrocyte distribution width (RBC) [Ratio] 14.6 % 11.6-14.[address] [facility] MCH (RBC) [Entitic mass] 26.6 pg 27.0-32.[address] [facility] MCHC Auto (RBC) [Mass/Vol]Or dered By: Dr. Moeller on 09-23-2022 MCHC (RBC) [Mass/Vol] 31.6 g/dL 32-36 [facility] No Panel InformationOrdered By: Dr. Moeller on 09-23-2022 Estimated GFR (MDRD) Amer 117 mL/min >[address] [facility] Comment on above: GFR Calc Estimated GFR (MDRD) Non-Af Amer 96 mL/min >[address] [facility] Comment on above: Non- GFR Calc Hepatitis C Antibody Non-Reactive Nonreactive [facility] Comment on above: Non Reactive: < 0.8 Equivocal: >/= 0.8 to < 1.0 Reactive: >/= 1.0The CDC recommends that a reactive/equivocal HCV antibody result be followed up by the HCV Nucleic Acid Amplificationtest (175595) Thyroid Stimulating Hormone (TSH) 2.71 uIU/mL 0.358-3.[address] [facility] Platelets bldOrdered By: Dr. Moeller on 09-23-2022 Platelets (Bld) [#/Vol] 261 10*3/uL 150-[address] [facility] Serum or plasma albumin new urement (mass/volume)Ordered By: Dr. Moeller on 09-23-2022 Albumin [Mass/Vol] 3.6 g/dL 3.2-5.0 [facility] Serum or plasma albumin/glob ulin mass ratioOrdered By: Dr. Moeller on 09-23-2022 Albumin/Globulin [Mass ratio] 1.0 {ratio} 0.9-2.[address] [facility] Serum or plasma calcium new urement (mass/volume)Ordered By: Dr. Moeller on 09-23-2022 Calcium [Mass/Vol] 8.9 mg/dL 8.5-10.1 [facility] Serum or plasma cholesterol in HDL measurement (mass/volume)Ordered By: Dr. Moeller on 09-23-2022 Cholesterol in HDL [Mass/Vol] 44 mg/dL >[address] [facility] Comment on above: The drugs N-Acetylcy steine and Metamizole may falsely depress this assay. Reference Range HDL <40 mg/dL Low HDL Cholesterol HDL >or= 60 mg/dL High HDL Cholesterol Serum or plasma cholesterol in VLDL measurement (mass/volume)Ordered By: Dr. Moeller on 09-23-2022 Cholesterol in VLDL [Mass/Vol] 16 mg/dL 5-[address] [facility] Serum or plasma creatinine m easurement (mass/volume)Ordered By: Dr. Moeller on 09-23-2022 Creatinine [Mass/Vol] 0.90 mg/dL 0.70-1.30 [facility] Comment on above: The validity of the calculated GFR & GFRAA in patients over 70 years has not been determined. Clinical correlation is essential. Serum or plasma low density lipoprotein (LDL) cholesterol measurement (mass/volume)Ordered By: Dr. Moeller on 09-23-2022 Cholesterol in LDL [Mass/Vol] 133 mg/dL 0-[address] [facility] Serum or plasma urea nitroge n measurement (mass/volume)Ordered By: Dr. Moeller on 09-23-2022 Urea nitrogen [Mass/Vol] 23 mg/dL 7-[address] [facility] Thin prep Papanicolaou smear with manual screeningOrdered By: Dr. Moeller on 09-23-2022 Thin prep Papanicolaou smear with manual screening 19 U/L 15-[address] [facility] Thin prep Papanicolaou smear with manual screening 6 5-[address] [facility] Whole blood hemoglobin A1c/t otal hemoglobin ratio (mass fraction)Ordered By: Dr. Moeller on 09-23-2022 HbA1c (Bld) [Mass fraction] 5.7 % 3.8-5.[address] [facility] Comment on above: Normal < 5.7 % Predi abetic 5.7 - 6.4 % Diabetic >or= 6.5 % Please note range changes. Basic metabolic 2000 panelon 07-24-2022 Anion gap [Moles/Vol] 7 mmol/L Normal 5-16 [facility] Comment on above: Order Comment: Speci men Type: BLOOD SPECIMEN Ordering Facility: [facility] Address: [address] [place] [address] Performed By: #### 2 4321-2 #### [facility] CLIA [id number] [address] [place] [address] [place] Calcium [Mass/Vol] 9.1 mg/dL Normal 8.5-10.5 [facility] Comment on above: Order Comment: Speci men Type: BLOOD SPECIMEN Ordering Facility: [facility] Address: [address] [place] [address] Performed By: #### 2 4321-2 #### [facility] CLIA [id number] [address] [place] [address] [place] Chloride [Moles/Vol] 107 mmol/L Normal 98-107 [facility] Comment on above: Order Comment: Speci men Type: BLOOD SPECIMEN Ordering Facility: [facility] Address: [address] [address] Performed By: #### 2 4321-2 #### [facility] CLIA [id number] [address] [place] [address] [place] CO2 [Moles/Vol] 30 mmol/L Normal 21-32 [facility] Comment on above: Order Comment: Speci men Type: BLOOD SPECIMEN Ordering Facility: [facility] Address: [address] [place] [address] Performed By: #### 2 4321-2 #### [facility] CLIA [id number] [address] [place] [address] [place] Creatinine [Mass/Vol] 0.98 mg/dL Normal 0.50-1.40 [facility] Comment on above: Order Comment: Julianna casey Type: BLOOD SPECIMEN Ordering Facility: [facility] Address: [address] [id number] Result Comment: Dona ents receiving either N-Acetylcysteine (NAC) or Metamizole prior to venipuncture, may have falsely depressed results. Performed By: #### 2 4321-2 #### [facility] CLIA [id number] [address] [place] [address] [place] ESTIMATED GLOMERULAR FILTRATION RATE 97 mL/min/1.73m??? Normal >=60 [facility] Comment on above: Order Comment: Julianna casey Type: BLOOD SPECIMEN Ordering Facility: [facility] Address: [address] [place] [address] Result Comment: Calli mated Glomerular Filtration Rate (eGFR) is calculated using the 2020 CKD-EPI creatinine equation. This equation utilizes serum creatinine, sex, and age as parameters. The creatinine assay has traceable calibration to isotope dilution-mass spectrometry. Refer to KDIGO guidelines for clinical interpretation. In patients with unstable renal function, e.g. those with acute kidney injury, the eGFR may not accurately reflect actual GFR. Performed By: #### 2 4321-2 #### [facility] CLIA [id number] [address] [place] [address] [place] Glucose [Mass/Vol] 102 mg/dL High 70-100 [facility] Comment on above: Order Comment: Julianna casey Type: BLOOD SPECIMEN Ordering Facility: [facility] Address: [address] [id number] Result Comment: The [place] Diabetes Association (ADA) provides guidance for cutoff values for fasting glucose and random glucose. The ADA defines fasting as no caloric intake for at least 8 hours. Fasting plasma glucose results between 100 to 125 mg/dL indicate increased risk for diabetes (prediabetes). Fasting plasma glucose results greater than or equal to 126 mg/dL meet the criteria for diagnosis of diabetes. In the absence of unequivocal hyperglycemia, results should be confirmed by repeat testing. In a patient with classic symptoms of hyperglycemia or hyperglycemic crisis, random plasma glucose results greater than or equal to 200 mg/dL meet the criteria for diagnosis of diabetes. Reference: Standards of Medical Care in Diabetes 2016, [place] [employer]. Diabetes Care. 2016.39(Suppl 1). Results may be falsely elevated after the administration of Sulfapyridine. Results may be falsely depressed after the administration of Sulfasalazine. Performed By: #### 2 4321-2 #### [facility] CLIA [id number] [address] [place] [address] [place] Potassium [Moles/Vol] 4.6 mmol/L Normal 3.5-5.1 [facility] Comment on above: Order Comment: Speci men Type: BLOOD SPECIMEN Ordering Facility: [facility] Address: [address] [place], [place] [address] Performed By: #### 2 4321-2 #### [facility] CLIA [id number] [address] [place] [address] [place] Sodium [Moles/Vol] 144 mmol/L Normal 136-145 [facility] Comment on above: Order Comment: Speci men Type: BLOOD SPECIMEN Ordering Facility: [facility] Address: [address] [place] [address] Performed By: #### 2 4321-2 #### [facility] CLIA [id number] [address] [place] [address] [place] Urea nitrogen [Mass/Vol] 17 mg/dL Normal 7-26 [facility] Comment on above: Order Comment: Speci men Type: BLOOD SPECIMEN Ordering Facility: [facility] Address: [address] [address] Performed By: #### 2 4321-2 #### [facility] CLIA [id number] [address] [place] [address] [place] CBC W Auto Differential pane l (Bld)on 07-24-2022 Basophils (Bld) [#/Vol] 0.05 10*3/uL Normal <0.11 [facility] Comment on above: Order Comment: Speci men Type: BLOOD SPECIMEN Ordering Facility: [facility] Address: [address] [place] [address] Performed By: #### 5 7021-8 #### [facility] CLIA [id number] [address] [place] [address] [place] Basophils/100 WBC (Bld) 0.6 % Normal [facility] Comment on above: Order Comment: Speci men Type: BLOOD SPECIMEN Ordering Facility: [facility] Address: [address] [address] Performed By: #### 5 7021-8 #### [facility] CLIA [id number] [address] [place] [address] [place] Differential cell count method Nom (Bld) Auto Normal [facility] Comment on above: Order Comment: Speci men Type: BLOOD SPECIMEN [facility] Address: [address] [address] Performed By: #### 5 7021-8 #### [facility] CLIA [id number] [address] [place] [address] [place] Eosinophils (Bld) [#/Vol] 0.21 10*3/uL Normal <0.46 [facility] Comment on above: Order Comment: Speci men Type: BLOOD SPECIMEN Ordering [facility] Address: [address] [address] Performed By: #### 5 7021-8 #### [facility] CLIA [id number] [address] [place] [address] [place] Eosinophils/100 WBC (Bld) 2.6 % Normal [facility] Comment on above: Order Comment: Speci men Type: BLOOD SPECIMEN [facility] Address: [address] [address] Performed By: #### 5 7021-8 #### [facility] CLIA [id number] [address] [place] [address] [place] Erythrocyte distribution width (RBC) [Ratio] 14.4 % Normal 11.5-15.0 [facility] Comment on above: Order Comment: Speci men Type: BLOOD SPECIMEN [facility] Address: [address] [address] Performed By: #### 5 7021-8 #### [facility] CLIA [id number] [address] [place] [address] [place] Hematocrit (Bld) [Volume fraction] 46.2 % Normal 39.0-51.0 [facility] Comment on above: Order Comment: Speci men Type: BLOOD SPECIMEN [facility] Address: [address] [address] Performed By: #### 5 7021-8 #### [facility] CLIA [id number] [address] [place] [address] [place] Hemoglobin (Bld) [Mass/Vol] 14.8 g/dL Normal 13.0-17.0 [facility] Comment on above: Order Comment: Speci men Type: BLOOD SPECIMEN [facility] Address: [address] [address] Performed By: #### 5 7021-8 #### [facility] CLIA [id number] [address] [place] [address] [place] Immature granulocytes (Bld) [#/Vol] 0.04 10*3/uL Normal <0.10 [facility] Comment on above: Order Comment: Speci men Type: BLOOD SPECIMEN [facility] Address: [address] [address] Performed By: #### 5 7021-8 #### [facility] CLIA [id number] [address] [place] [address] [place] Immature granulocytes/100 WBC (Bld) 0.5 % Normal [facility] Comment on above: Order Comment: Speci men Type: BLOOD SPECIMEN [facility] Address: [address] [address] Performed By: #### 5 7021-8 #### [facility] CLIA [id number] [address] [place] [address] [place] Lymphocytes (Bld) [#/Vol] 1.84 10*3/uL Normal 1.00-4.00 [facility] Comment on above: Order Comment: Speci men Type: BLOOD SPECIMEN [facility] Address: [address] [address] Performed By: #### 5 7021-8 #### [facility] CLIA [id number] [address] [place] [address] [place] Lymphocytes/100 WBC (Bld) 23.1 % Normal [facility] Comment on above: Order Comment: Speci men Type: BLOOD SPECIMEN [facility] Address: [address] [address] Performed By: #### 5 7021-8 #### [facility] CLIA [id number] [address] [place] [address] [place] MCH (RBC) [Entitic mass] 26.6 pg Normal 26.0-34.0 [facility] Comment on above: Order Comment: Speci men Type: BLOOD SPECIMEN [facility] Address: [address] [address] Performed By: #### 5 7021-8 #### [facility] CLIA [id number] [address] [place] [address] [place] MCHC (RBC) [Mass/Vol] 32.0 g/dL Normal 30.5-36.0 [facility] Comment on above: Order Comment: Speci men Type: BLOOD SPECIMEN Ordering [facility] Address: [address] Performed By: #### 5 7021-8 #### [facility] CLIA [id number] [address] [place] [address] [place] MCV (RBC) [Entitic vol] 83.1 fL Normal 80.0-100.0 [facility] Comment on above: Order Comment: Speci men Type: BLOOD SPECIMEN [facility] Address: [address] [address] Performed By: #### 5 7021-8 #### [facility] CLIA [id number] [address] [place] [address] [place] Monocytes (Bld) [#/Vol] 0.76 10*3/uL Normal <0.87 [facility] Comment on above: Order Comment: Speci men Type: BLOOD SPECIMEN [facility] Address: [address] [address] Performed By: #### 5 7021-8 #### [facility] CLIA [id number] [address] [place] [address] [place] Monocytes/100 WBC (Bld) 9.5 % Normal [facility] Comment on above: Order Comment: Speci men Type: BLOOD SPECIMEN [facility] Address: [address] [place] [address] Performed By: #### 5 7021-8 #### [facility] CLIA [id number] [address] [place] [address] [place] Neutrophils (Bld) [#/Vol] 5.06 10*3/uL Normal 1.45-7.50 [facility] Comment on above: Order Comment: Speci men Type: BLOOD SPECIMEN [facility] Address: [address] [place] [address] Performed By: #### 5 7021-8 #### [facility] CLIA [id number] [address] [place] [address] [place] Neutrophils/100 WBC (Bld) 63.7 % Normal [facility] Comment on above: Order Comment: Speci men Type: BLOOD SPECIMEN Order[facility] Address: [address] [place] [address] Performed By: #### 5 7021-8 #### [facility] CLIA [id number] [address] [place] [address] [place] Nucleated RBC (Bld) [#/Vol] 10*3/uL Normal <0.01 [facility] Comment on above: Order Comment: Speci men Type: BLOOD SPECIMEN [facility] Address: [address] [address] Performed By: #### 5 7021-8 #### [facility] CLIA [id number] [address] [place] [address] [place] Nucleated RBC/100 WBC (Bld) [Ratio] 0.0 /100 WBC Normal [facility] Comment on above: Order Comment: Speci men Type: BLOOD SPECIMEN [facility] Address: [address] [address] Performed By: #### 5 7021-8 #### [facility] CLIA [id number] [address] [place] [address] [place] Platelet mean volume (Bld) [Entitic vol] 10.2 fL Normal 9.0-12.7 [facility] Comment on above: Order Comment: Speci men Type: BLOOD SPECIMEN [facility] Address: [address] [address] Performed By: #### 5 7021-8 #### [facility] CLIA [id number] [address] [place] [address] [place] Platelets (Bld) [#/Vol] 301 10*3/uL Normal 150-400 [facility] Comment on above: Order Comment: Speci men Type: BLOOD SPECIMEN [facility] Address: [address] Performed By: #### 5 7021-8 #### [facility] CLIA [id number] [address] [place] [address] [place] RBC (Bld) [#/Vol] 5.56 10*6/uL Normal 4.20-6.00 [facility] Comment on above: Order Comment: Speci men Type: BLOOD SPECIMEN Order[facility] Address: [address] Performed By: #### 5 7021-8 #### [facility] CLIA [id number] [address] [place] [address] [place] WBC (Bld) [#/Vol] 7.96 10*3/uL Normal 3.70-11.00 [facility] Comment on above: Order Comment: Speci men Type: BLOOD SPECIMEN Ordering Facility: [facility] Address: [place] [address] Performed By: #### 5 7021-8 #### [facility] CLIA [id number] [address] [id number] [place] BRAIN WO IVCONon 07-24-[address] BRAIN WO IVCON * * *Final Report* * * DATE OF EXAM: Jul 24 2022 7:37PM [facility] 0504 - CT BRAIN WO IVCON / PROCEDURE REASON: Head trauma, moderate-severe * * * * Physician Interpretation * * * * EXAMINATION: CT BRAIN WO IVCON CLINICAL HISTORY: Head trauma TECHNIQUE: Serial axial images without IV contrast were obtained from the vertex to the foramen magnum. MQ: CTBWO_3 CT Radiation dose: Integrated Dose-Length Product (DLP) for this visit = 715.81 mGy*cm CT Dose Reduction Employed: Iterative recon COMPARISON: None. RESULT: Post-operative change: None. Acute change: No evidence of an acute infarct or other acute parenchymal process. Hemorrhage: No evidence of acute intracranial hemorrhage. ECASS hemorrhagic transformation score: Not Applicable Mass Lesion / Mass Effect: There is no evidence of an intracranial mass or extraaxial fluid collection. No significant mass effect. Chronic change: None apparent. Parenchyma: There is no significant volume loss. The brain parenchyma is otherwise within normal limits for age. Ventricles: The ventricles are within normal limits of size and configuration for age. Paranasal sinuses and skull base: The visualized paranasal sinuses are grossly clear. The skull base and imaged soft tissues are unremarkable. Accounts Supervisor (topogram) images: No additional findings. IMPRESSION: No evidence of acute intracranial pathology. Urologist: PSCB Transcribe Date/Time: Jul 24 2022 7:40P Dictated by : BRITTANY HDZ MD This examination was interpreted and the report reviewed and electronically signed by: BRITTANY HDZ MD on Jul 24 2022 7:42PM EST [id number] CN Normal [facility] ECG COMPLETEon 07-24-2022 ECG COMPLETE Ventricular Rate : 83 BPM Atrial Rate : 83 BPM P-R Interval : 156 ms QRS Duration : 102 ms Q-T Interval : 386 ms QTC Calculation(Bazett) : 453 ms Calculated P Seminary : 43 degrees Calculated R Seminary : 67 degrees Calculated T Seminary : 32 degrees Normal sinus rhythm Normal ECG No previous ECGs available Confirmed by ARTIS BOLIVAR MD ([id number]) on 07/25/2022 7:44:49 AM NAME : NOVA MORRIS PID : [id number] : 1975 Gender : Male Race : ORD : [id number] Procedure Date : Jul 24 2022 17:52:52 Edit Date : Jul 25 2022 07:44:52 Diagnosis: Normal sinus rhythm Normal ECG No previous ECGs available Confirmed by ARTIS BOLIVAR MD ([id number]) on 07/25/2022 7:44:49 AM Test Reason : STAT Location : 0 : ED [id number] Overread By : ARTIS BOLIVAR MD Edited By : ARTIS BOLIVAR MD Referred By : , Acquired by : HAJA [facility] ED NOTEon 07-24-2022 ED NOTE HNO ID: [id number] Author: Fazal Marshall RN Service: ? Author Type: Registered Nurse Type: ED Notes Filed: 07/24/2022 5:29 PM Note Text: Pt was visiting his family member today in this hospital, was watching a dressing change when he had a syncopal episode, fell and hit his head. Does not recall this event. Pt denies thinners. Denies CP or SOB. Currently feeling pain on left side of head where he has a small laceration. Pain reported is a 2/10. H/x of seizures. Blood sugar 93. No further complaints at this time. [facility] ED PROV NOTEon 07-24-2022 ED PROV NOTE HNO ID: [id number] Author: Maurizio Cummins MD Service: ? Author Type: Physician Type: ED Provider Notes Filed: 07/25/2022 3:07 AM Note Text: ED Provider Note Patient Name: Nova Morris : 1975 SERVICE DATE: 07/24/22 History Patient presents with: Fall: Hit head, no thinners History provided by: Patient and relative taper and floater used: No Edward Jl Morris is a 47 year old male who presents to the ED for further evaluation after syncopal episode. The patient was visiting a family member who recently had open heart surgery. He was in the room when they were removing tubes from her chest. He then had a syncopal episode and fell hitting his head. Family said he regained consciousness almost immediately. He was alert and answering questions. A emergency on the grounds was called and the patient was taken to the ED for evaluation. His only complaint is pain to the left forehead where there is a small laceration. He denies any neck pain. No chest pain or palpitations. He denies feeling short of breath. He has no back pain. No abdominal pain. He denies any numbness or tingling. No focal weakness. He states he never passed out in the past. He does have a history of epilepsy. His said she has never seen him have a seizure but this did not appear to be one. Again, she said he was awake almost immediately after this episode. ROS No pertinent positive findings other than noted in HPI, MDM or ED course. PAST MEDICAL HISTORY Diagnosis Date Nephrolithiasis No past surgical history on file. FAMILY HISTORY Problem Relation Age of Onset Stroke Maternal Grandmother Alzheimer's Disease Paternal Grandmother Coronary Artery Disease Father Coronary Artery Disease Paternal Uncle Coronary Artery Disease Maternal Grandfather Social History Tobacco Use Smoking status: Never Smokeless tobacco: Never Substance and Sexual Activity Alcohol use: No Drug use: No Sexual activity: Not on file ALLERGIES No Known Allergies Records on file/review of medical records: Nursing/triage notes and assessments as well as vitals were reviewed and incorporated Physical Exam Vitals [07/24/22 1722] BP Pulse Temp Temp src Resp SpO2 Weight Height 168/83 80 36.9 ?C (98.4 ?F) Oral 16 95 % 113.4 kg (250 lb) -- Physical Exam Vitals and nursing note reviewed. Constitutional: Appearance: Normal appearance. HENT: Head: Normocephalic. Comments: There is a 0.5 cm superficial laceration on the left forehead. There is no active bleeding. There is mild tenderness around the laceration. Right Ear: External ear normal. Left Ear: External ear normal. Nose: Nose normal. Mouth/Throat: Mouth: Mucous membranes are moist. Pharynx: Oropharynx is clear. Eyes: Extraocular Movements: Extraocular movements intact. Conjunctiva/sclera: Conjunctivae normal. Pupils: Pupils are equal, round, and reactive to light. Neck: Comments: Cervical collar in place. The patient has no midline C-spine tenderness. He has full range of motion at the neck. Cervical spine has been clinically cleared. Cervical collar was removed. Cardiovascular: Rate and Rhythm: Normal rate and regular rhythm. Pulses: Normal pulses. Heart sounds: Normal heart sounds. Pulmonary: Effort: Pulmonary effort is normal. Breath sounds: Normal breath sounds. Abdominal: General: Abdomen is flat. Bowel sounds are normal. Palpations: Abdomen is soft. Musculoskeletal: General: Normal range of motion. Cervical back: Normal range of motion and neck supple. Comments: No midline tenderness over the thoracic and lumbar spine Skin: General: Skin is warm and dry. Capillary Refill: Capillary refill takes less than 2 seconds. Neurological: General: No focal deficit present. Mental Status: He is alert and oriented to person, place, and time. Psychiatric: Mood and Affect: Mood normal. Diagnostic Testing ED Labs Ordered and Reviewed BASIC METABOLIC PNL - Abnormal; Notable for the following components: Result Value Ref Range Glucose 102 (*) 70 - 100 mg/dL All other components within normal limits HIGH SENSITIVITY TROPONIN I - Normal CBC + DIFF Narrative: This is an appended report. These results have been appended to a previously verified report. Radiology/images: CT BRAIN WO IVCON Final Result IMPRESSION: No evidence of acute intracranial pathology. Urologist: [facility] Transcribe Date/Time: Jul 24 2022 7:40P Dictated by : BRITTANY HDZ MD This examination was interpreted and the report reviewed and electronically signed by: BRITTANY HDZ MD on Jul 24 2022 7:42PM EST I reviewed images as well as radiologist interpretation(s) Procedures: Procedures ED Course / Clinical Impression Clinical Impressions as of 07/25/22 0307 Syncope and collapse Closed head injury, initial encounter Laceration of forehead, initial encounter Medications received in E (more content not included)... Normal [facility] HIGH SENSITIVITY TROPONIN Io n 07-24-2022 Tropinin I.cardiac panel High sensitivity method <2.5 Normal 0.0-54.0 [facility] Comment on above: Order Comment: Speci men Type: BLOOD SPECIMEN Ordering Facility: [facility] Address: [address] [place] [address] [place] [address] Result Comment: This assay uses different antibodies than our current assay, and assays, even by the same recruitment consultant may recognize different regions of the antibody and cannot be used interchangeably. Expect results of this assay to run higher than the previous assay. Performed By: #### H HOMER #### [facility] CLIA [id number] [address] [place] [address] [place] Basophil percentageon 2021 Bilirubin [Mass/Vol] 0.40 mg/dL 0.20-1.00 [facility] Work Phone: Comment on above: For patients on eltr ombopag therapy, use of [employer] [place] TBIL is not recommended. Chloride [Moles/Vol] 107 mmol/L 98-107 [facility] Work Phone: Cholesterol [Mass/Vol] 174 mg/dL <200 [facility] Work Phone: Comment on above: <200 mg/dL Desirable 200-240 mg/dL Borderline >240 mg/dL High Risk Glucose [Mass/Vol] 111 mg/dL 74-106 [facility] Work Phone: Comment on above: Fasting Glucose resu lt from 100 to 125 mg/dL suggests IMPAIRED HOMEOSTASIS per A.D.A. criteria. Potassium [Moles/Vol] 4.0 mmol/L 3.5-5.1 [facility] Work Phone: [phone] Protein [Mass/Vol] 7.0 g/dL 6.4-8.2 [facility] Work Phone: [phone] Sodium [Moles/Vol] 140 mmol/L 136-145 [facility] Work Phone: [phone] Triglyceride [Mass/Vol] 72 mg/dL <[address] [facility] Work Phone: Comment on above: The drugs N-Acetylcy steine and Metamizole may falsely depress this assay.Serum Triglycerides Reference Interval Normal <150 mg/dL Borderline high 150 - 199 mg/dL High 200 - 499 mg/dL Very High > or = 500 mg/dL WBC (Bld) [#/Vol] 8.9 10*3/uL 4.4-11.0 [facility] Work Phone: Blood erythrocytes count (nu mber/volume)on 04-29-2022 RBC (Bld) [#/Vol] 5.28 10*6/uL 4.6-6.2 [facility] Work Phone: Blood hemoglobin measurement (mass/volume)on 04-29-2022 Hemoglobin (Bld) [Mass/Vol] 13.9 g/dL 13.0-16.[address] [facility] Work Phone: [phone] Blood platelet mean volumeon 04-29-2022 Platelet mean volume (Bld) [Entitic vol] 10.1 fL 6.2-12.[address] [facility] Work Phone: [phone] Determination of erythrocyte mean corpuscular volume (MCV)on 04-29-2022 MCV (RBC) [Entitic vol] 83.5 fL 80-[address] [facility] Work Phone: [phone] Hematocrit Auto (Bld) [Volum e fraction]on 04-29-2022 Hematocrit (Bld) [Volume fraction] 44.1 % 40-[address] [facility] Work Phone: Laboratory - Chemistry and C hemistry - challengeon 04-29-2022 ALP [Catalytic activity/Vol] 90 U/L 45-[address] [facility] Work Phone: ALT [Catalytic activity/Vol] 37 U/L 16-[address] [facility] Work Phone: [phone] CO2 [Moles/Vol] 29.0 mmol/L 21.0-32.[address] [facility] Work Phone: Globulin (S) [Mass/Vol] 3.6 g/dL 2.2-4.[address] [facility] Work Phone: [phone] Urea nitrogen/Creatinine [Mass ratio] 19.5 mg/mg 10-[address] [facility] Work Phone: [phone] Laboratory - Hematology and Cell countson 04-29-2022 Erythrocyte distribution width (RBC) [Entitic vol] 42.4 fL 35.1-43.[address] [facility] Work Phone: [phone] Erythrocyte distribution width (RBC) [Ratio] 13.9 % 11.6-14.[address] [facility] Work Phone: [phone] MCH (RBC) [Entitic mass] 26.3 pg 27.0-32.[address] [facility] Work Phone: [phone] MCHC Auto (RBC) [Mass/Vol]on 04-29-2022 MCHC (RBC) [Mass/Vol] 31.5 g/dL 32-36 [facility] Work Phone: No Panel Informationon 04-29 Estimated GFR (MDRD) Amer 114 mL/min >[address] [facility] Work Phone: [phone] Comment on above: GFR Calc Estimated GFR (MDRD) Non-Af Amer 94 mL/min >[address] [facility] Work Phone: [phone] Comment on above: Non- GFR Calc Rubella IgG Antibody Reactive Nonreactive [facility] Work Phone: [phone] Comment on above: Antibody Results Int erpretation of Immune Status Non Reactive Presumed Non-Immune Equivocal Equivocal Reactive Presumed Immune Platelets bldon 04-29-2022 Platelets (Bld) [#/Vol] 289 10*3/uL 150-[address] [facility] Work Phone: Serum measles virus IgG anti body assay by immunoassay (units/volume)on 04-29-2022 MeV IgG IA Qn (S) 25.0 AU/mL Immune >16.4 [facility] Work Phone: [phone] Comment on above: Negative <13.5 Equiv ocal 13.5 - 16.4 Positive >16.4Presence of antibodies to Rubeola is presumptive evidenceof immunity except when acute infection is suspected. Serum mumps virus IgG antibo dy assay (units/volume)on 04-29-2022 MuV IgG Qn (S) 121.0 AU/mL Immune >10.[address] [facility] Work Phone: [phone] Comment on above: Negative <9.0 Equivo rufino 9.0 - 10.9 Positive >10.9A positive result generally indicates past exposure toMumps virus or previous vaccination. Serum mumps virus IgM antibo dy assay (units/volume)on 04-29-2022 MuV IgM Qn (S) < 0.80 AU 0.00-0.[address] [facility] Work Phone: Comment on above: Negative < 0.80 Bord armando 0.80 - 1.20 Positive > 1.20Note: The presence of IgM specific antibody should beinterpreted in conjunction with the patient's clinicalhistory and exposure risk when an acute infection issuspected.Performed at: [facility] [address] [id number] Director: Richar Washington PhD, Phone: [phone] at: [facility] [id number] Director: Donna Lazcano MD, Phone: [phone] Serum or plasma albumin new urement (mass/volume)on 04-29-2022 Albumin [Mass/Vol] 3.4 g/dL 3.2-5.0 [facility] Work Phone: Serum or plasma albumin/glob ulin mass ratioon 04-29-2022 Albumin/Globulin [Mass ratio] 0.9 {ratio} 0.9-2.[address] [facility] Work Phone: Serum or plasma calcium new urement (mass/volume)on 04-29-2022 Calcium [Mass/Vol] 8.6 mg/dL 8.5-10.1 [facility] Work Phone: Serum or plasma cholesterol in HDL measurement (mass/volume)on 04-29-2022 Cholesterol in HDL [Mass/Vol] 42 mg/dL >[address] [facility] Work Phone: Comment on above: The drugs N-Acetylcy steine and Metamizole may falsely depress this assay. Reference Range HDL <40 mg/dL Low HDL Cholesterol HDL >or= 60 mg/dL High HDL Cholesterol Serum or plasma cholesterol in VLDL measurement (mass/volume)on 04-29-2022 Cholesterol in VLDL [Mass/Vol] 14 mg/dL 5-[address] [facility] Work Phone: Serum or plasma creatinine m easurement (mass/volume)on 04-29-2022 Creatinine [Mass/Vol] 0.92 mg/dL 0.70-1.30 [facility] Work Phone: Comment on above: The validity of the calculated GFR & GFRAA in patients over 70 years has not been determined. Clinical correlation is essential. Serum or plasma low density lipoprotein (LDL) cholesterol measurement (mass/volume)on 04-29-2022 Cholesterol in LDL [Mass/Vol] 118 mg/dL 0-[address] [facility] Work Phone: Serum or plasma urea nitroge n measurement (mass/volume)on 04-29-2022 Urea nitrogen [Mass/Vol] 18 mg/dL 7-[address] [facility] Work Phone: Thin prep Papanicolaou smear with manual screeningon 04-29-2022 Thin prep Papanicolaou smear with manual screening 15 U/L 15-[address] [facility] Work Phone: Thin prep Papanicolaou smear with manual screening 4 5-[address] [facility] Work Phone: Whole blood hemoglobin A1c/t otal hemoglobin ratio (mass fraction)on 04-29-2022 HbA1c (Bld) [Mass fraction] 6.1 % 3.8-5.[address] [facility] Work Phone: Comment on above: Normal < 5.7 % Predi abetic 5.7 - 6.4 % Diabetic >or= 6.5 % Please note range changes. OBSOLETEon 10-15-2018 OBSOLETE Refill ([id number]) NOVA MORRIS ([id number]) 1975 Date Time Provider Department 10/15/18 LIA HYDE NE50MN During your visit today, we recorded the following information about you: Avril Asher Adm Asst 10/15/2018 12:40 PM Signed Prescription Refill: Requested by: pharmacy Please E-Scribe Contact Number: [phone] SERJIO Monte Generic/ brand: 30 or 90 day supply requested: 30 Last appointment: 09/27/16 Next Appointment: Needs Appointment Patient of Dr. Jw Jaramillo PA-C 10/15/2018 12:50 PM Signed LEV prescription last sent on 01/16/2019 for 90 day supply LTG last sent on 04/24/2018 for 30 day supply Celexa last sent on 09/01/2017 Please see if patient has established care with local neurologist, or if someone else has been prescribing medications? Nunu Jaramillo PA-C October 15, 2018 Nunu Rene RN, RN 10/15/2018 1:15 PM Signed Called patient, no answer received. No answer received. Left voicemail message requesting return phone call to discuss refill requests. STEPH Lopez RN, RN 10/16/2018 10:47 AM Signed Called patient, no answer received. Left voicemail message requesting return phone call to clarify prescriptions. STEPH Lopez, RN, RN 10/17/2018 7:59 AM Signed Spoke with patient regarding refill requests submitted to the office. Patient states that he will be calling his local neurologist for refills. He inadvertently contacted this office. He states further follow ups will be with local neurologist. STEPH Lopez PA-C 10/17/2018 8:40 AM Signed The following approved medication requests have been transmitted electronically. Refused Prescriptions Disp Refills lamoTRIgine (LAMICTAL) 100 mg tablet 120 tablet 0 Sig: Take 2 tablets by mouth twice daily. DAYANA: No Refused By: NUNU JARAMILLO PA-C Reason for Refusal: Patient no longer under Prescriber care citalopram (CELEXA) 40 mg tablet 30 tablet 0 Sig: Take 1 tablet by mouth once daily. DAYANA: No Refused By: NUNU JARAMILLO PA-C Reason for Refusal: Patient no longer under Prescriber care levETIRAcetam (KEPPRA) 750 mg tablet 120 tablet 0 Sig: Take 2 tablets by mouth twice daily. DAYANA: No Refused By: NUNU JARAMILLO PA-C Reason for Refusal: Patient no longer under Prescriber care Per patient he will be following with local neurologist and getting further refills from their office. 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] Prescriptions as of 10/15/2018 Sig: LAMOTRIGINE 100 MG TABLET Take 2 tablets by mouth twice* LEVETIRACETAM 750 MG TABLET Take 2 tablets by mouth twice* CITALOPRAM 40 MG TABLET Take 1 tablet by mouth once d* LORAZEPAM 0.5 MG TABLET Take 0.5 mg by mouth three ti* Problem List As Of Date 10/15/2018 Noted Resolved Seizure (HCC) [R56.9] INVALID FOR* Focal epilepsy with impairment of consciousness*INVALI D FOR* Epilepsy with altered consciousness without int*INVALID FOR* Encounter Status:Closed by NUNU JARAMILLO PA-C on 10/17/18 [facility] Encounters Encounter Date Encounter Type Care Provider Facility Start: 02-07-2025 End: 02-07-2025 ambulatory JOLLY MOELLER DO [facility] Start: 02-07-2025 End: 02-07-2025 Patient encounter procedure JOLLY MOELLER DO [facility] Start: 09-26-2024 End: 09-26-2024 ambulatory JOLLY MOELLER DO [facility] Start: 05-22-2024 End: 05-22-2024 Emergency department patient visit Jolly Moeller Facility:[facility] Start: 02-27-2024 End: 02-27-2024 ambulatory Jolly Moeller Facility:[facility] Start: 09-05-2023 ambulatory Jolly Moeller Facility: [facility] Start: 08-29-2023 End: 08-29-[address] [facility] Work Phone: Start: 08-29-2023 End: 08-29-2023 Patient encounter procedure [facility] Work Phone: Start: 08-29-2023 End: 08-29-2023 ambulatory Jolly Moeller Facility:[facility] Start: 09-23-2022 End: 09-23-[address] [facility] Work Phone: Start: 09-23-2022 End: 09-23-2022 Patient encounter procedure [facility] Start: 07-24-2022 End: 07-24-2022 Emergency department patient visit JUAN CASTRO Facility:[id number] Start: 04-29-2022 End: 04-29-[address] [facility] Work Phone: Start: 04-29-2022 End: 04-29-2022 Patient encounter procedure [facility] Plan of Treatment Date Care Activity Detail Author Start: 08-29-2023 Procedure [facility] Immunizations Immunization Date Immunization Notes Care Provider Liban yusuf 06-28-2024 influenza, injectabl e, quadrivalent, contains preservative; Translations: [Fluarix PF Prefilled Syringe ] JOLLY MOELLER DO [facility] 06-28-2023 influenza, injectabl e, quadrivalent, contains preservative; Translations: [Fluarix PF Quadrivalent ] JOLLY MOELLER DO [facility] 03-28-2022 influenza, injectabl e, quadrivalent, contains preservative; Translations: [Fluarix PF Quadrivalent ] JOLLY MOELLER DO [facility] 04-13-2021 influenza, injectabl e, quadrivalent, contains preservative; Translations: [Fluarix PF Quadrivalent ] JOLLY MOELLER DO [facility] 11-11-2020 SARS-CoV-2 (COVID-19 ) mRNA-1273 vaccine JOLLY MOELLER DO [facility] 10-14-2020 SARS-CoV-2 (COVID-19 ) mRNA-1273 vaccine JOLLY MOELLER DO [facility] 04-24-2020 influenza virus vaccine, unspecified formulation JOLLY MOELLER DO [facility] 05-10-2019 influenza virus vaccine, unspecified formulation JOLLY MOELLER DO [facility] 07-10-2018 diphtheria and tetan us toxoids, adsorbed for pediatric use JOLLY MOELLER DO [facility] Comment on above: Result Comment: post injury 04-25-2018 influenza virus vaccine, unspecified formulation JOLLY MOELLER DO [facility] 04-06-2016 influenza virus vaccine, unspecified formulation JOLLY MOELLER DO [facility] 05-04-2015 influenza virus vaccine, unspecified formulation JOLLY MOELLER DO [facility] Payers Date Payer Category Payer Private Health Insurance [id number] 2023 Self-pay [id number] 2016 Unknown [id number] 1975 Unknown [id number] 1975 Unknown [id number] 2.16.8 [id number] Unknown [id number] 2.16.8 [id number] Unknown [id number] 2.16.8 [id number] Unknown [id number] 2.16.8 [id number] Unknown [id number] 2.16.8 [id number] Social History Date Type Detail Facility Start: 09-17-2021 End: 09-17-2021 Tobacco smoking status LAIS Unknown if ever smoked [facility] Start: 1975 Sex Assigned At Male [facility] Start: 02-07-2025 Tobacco smoking status Never s moked tobacco (finding) [facility] Sexual Orientation [facility] Start: 08-17-2005 Sex Male (finding) [facility] Evaluation + Plan note Laboratory Note Date & Type Note Facility Evaluation + Plan note Future Appointments Appointment Date:08/13/2025 08:00:00 AM Scheduled Provider:JOLLY MOELLER DO Location:[facility] Appointment Type: OV Future Scheduled [id number] Hemoglobin 08/31/24Complete Blood Count 08/31/24Lipid Profile 08/31/24Complete Metabolic Panel 08/31/24 [facility] Evaluation note Note Date & Type Note Facility Evaluation note No assessment information availa [facility] Work Phone: Hospital course Narrative Note Date & Type Note Facility Hospital course Narrative No data available for this section [facility] Hospital Discharge instructions Note Date & Type Note Facility Hospital Discharge instructions No data available for this section [facility] Progress note Note Date & Type Note Facility Progress note No data available for this section [facility] Summary Purpose Family History No Family History Records FoundNo Family History Records FoundNo Family History Records Found No data available for this section No Family History Records Found Advance Directives No Advanced Directives Records Found Advance Directive Response Recorded Date/ Time Living Will No September 17, 2021 9:58pm Power of Automobile Upholstery Trim Installer No September 17 9:58pm Advance Directive Response Recorded Date/ Time Living Will No September 17, 2021 8:58pm Power of Automobile Upholstery Trim Installer No September 17 8:58pm Additional Source Comments (unrecognized sect ion and content) No Status Records FoundNo Status Records FoundNo Status Records FoundNo Status Records Found INFORMATION SOURCE (unrecogn ized section and content) DATE CREATED AUTHOR 10/18/2018 [facility] DATE CREATED AUTHOR AUTHOR'S ORGANIZ ATION 07/25/2022 [facility] DATE CREATED AUTHOR AUTHOR'S ORGANIZ ATION 06/22/2024 [facility] DATE CREATED AUTHOR AUTHOR'S ORGANIZ ATION 02/09/2025 [facility] Goals (unrecognized section and content) Goals may be documented in a n alternate sectionGoals may be documented in an alternate sectionGoals may be documented in an alternate section No data available for this section Care Teams (unrecognized sec tion and content) Team Status: Active Member Role Status Dates Dr. Gatito Roa DO Family Provider Active Dr. Jolly Moeller DO Primary Care Provider Active Team Status: Inactive Member Role Status Dates Dr. Jolly Moeller DO Primary Care Provider, Attendin g Provider Active Team Status: Inactive Member Role Status Dates Dr. Jolly Moeller DO Primary Care Provider, Other Pr ovider Active Dr. Deepak Valle MD Attending Provider, Referring Pro vider Active FOR RECORDS PERTAINING TO PATIENTS WHO ARE [...] BE BASED ON THE PRIMARY CLINICAL RECORDS. [facility] provides no warranty or guarantee of the accuracy or completeness of information in this document.
[2025-04-02 03:26] VITALS: BP 139/86; PULSE 81; RESP 16; TEMP 36.7; O2SAT 97
== END 2025-04-02 04:22 | disposition home or self-care (01) ==
LOC: ED 02:00
PROVIDERS: Emergency Provider Emergency Medicine; PCP Student in an Organized Health Care Education/Training Program; Visit Provider Emergency Medicine
DX: S29.012A Strain of muscle and tendon of back wall of thorax, initial encounter (principal); X50.0XXA Overexertion from strenuous movement or load, initial encounter
CPT/HCPCS: 73030; 96372; 99282